=== PATIENT | female | born 1950 | race Caucasian/White ===

== ENCOUNTER 2016-08-28 11:32 | Emergency (ER) | payer OTHER ==
[~2016-08-28 11:32] MED LIST: AMLODIPINE BES2.5 MG PO; ASPIRIN EC LOW81 MG PO; CLONAZEPAM1 MG PO; FLAGYL250 MG PO; HYDROMORPHONE HC2 MG PO; IMITREX100 MG PO; LOPRESSOR100 MG PO; MONTELUKAST SOD10 MG PO; NORCO1 TAB PO; OXYCODONE HCL10 MG PO; PERCOCET1 TA1 PO; SULFACETAMIDE OP; VICODIN EQUIVAL1 TAB PO
--- NOTE | 2016-08-28 12:33 | DIAGNOSTIC IMAGING REPORT ---
PROCEDURE: XR KNEE 4 VIEWS - RIGHT INDICATION: TRAUMA/INJURY, initial encounter TECHNIQUE: Four views. COMPARISON: None. FINDINGS: Osseous structures and joint spaces are normal. No effusion. IMPRESSION: 1. Normal right knee.
--- NOTE | 2016-08-28 12:45 | ED NURSING NOTES ---
Clinical Report - Nurses [facility] [address] [place] [place] [address] 08/28/2016 11:32 [id number] TRI[facility] Triage time 11:39. Acuity: LEVEL 3. Chief Complaint: INJURY TO RIGHT KNEE. Alert. No acute distress. SEPSIS SCREEN: Sepsis Screen: negative. Negative (no infection suspected/documented). TIANA COMA SCORE: [place] Coma Scale: 15- eyes open spontaneously (4); best verbal response- oriented x 4 (5); best motor response- obeys commands (6). --11:51 Maddie Harvey R.N. 11:39 08/28/16. BP: 153/79. HR: 92. RR: 20. O2 saturation: 100% on room air. Temp: 97.9 F. Pain level now: 05/24. --11:51 Maddie Harvey R.N. 11:39 08/28/16. BP: 153/79. HR: 92. RR: 20. O2 saturation: 100% on room air. Temp: 97.9 F. Pain level now: 05/24. --11:52 Maddie Harvey R.N. Weight: 60.7 kg stated. Height/Length: 63 inches Per Patient. BMI: 23.7. --11:48 Maddie Harvey R.N. Medications AmLODIPine Besylate Oral 2.5 mg, 2x a day. Aspirin Oral (Tablet 81 mg) 1 tablet, q day. ClonazePAM Oral 1 mg, 4x a day. Imitrex Oral (Tablet 100 mg) 1 tablet, PRN. Lopressor Oral (Tablet 100 mg) 1-1/2 tablets, 2x a day. Percocet Oral 5/325 mg (at night). Vicodin Oral 7.5 mg, 4x a day (during the day). --11:45 Maddie Harvey R.N. SEROquel Oral recently . --11:46 Maddie Harvey R.N. Medication/allergy information source: the patient. --11:51 Maddie Harvey R.N. Allergies Demerol. --11:45 Maddie Harvey R.N. History Arrived by private vehicle. Historian: patient. Primary physician (KATHY). ( dropped off). This occurred (2 days ago). Occurred at home. Mechanism of injury: a single blow with an unknown blunt object (Dropped a box of alexandra ornaments and hit on the inside of the rt knee. Happened 2 days.). She has had trouble walking. The patient has been unable to walk. Treatment OPERATIONS EXAMINER: Ice and (heat, icy-hot). PAST MEDICAL HX: Tetanus status: up-to-date. SOCIAL HX: Light tobacco smoker (cigarette)- less than 1/2 a pack per day. No alcohol use or drug use. FALL RISK ASSESSMENT: Fall risk assessment completed. No fall risk identified. NUTRITIONAL RISK ASSESSMENT: The nutritional risk assessment revealed no deficiencies. FUNCTIONAL ASSESSMENT: Functional assessment: no impairments noted. LEARNING NEEDS ASSESSMENT: The learning needs assessment revealed no barriers. SKIN INTEGRITY ASSESSMENT: Skin integrity risk assessment completed. No skin integrity risk identified. --11:51 Maddie Harvey R.N. PROBLEMS: Nausea. Vomiting. Gallstone(s). Gastroenteritis. Abnormal Liver Function Test. Abdominal Pain. UTI - Urinary Tract Infection. Leukocytosis. Dehydration. Aneurysm, Cerebral. Anxiety Reaction. Depression. Bowel Obstruction. Headache. Crohn's Disease. Migraine Headache. Hypertension. --11:48 Maddie Harvey R.N. Aneurysm [Resolved]. --11:48 Maddie Harvey R.N. Vomiting [RuleOut]. --11:48 Maddie Harvey R.N. Knee Injury. --11:48 Maddie Harvey R.N. ADDITIONAL SURGERIES: Appendectomy. Bowel Surgery. Breast Biopsy. Cholecystectomy. Colostomy. Corotid artery doppler study. Hysterectomy. Oophorectomy. Salpingectomy. Tonsillectomy. --11:48 Maddie Harvey R.N. Interventions ID band on patient. To room. --11:51 Maddie Harvey R.N. NURSING PROGRESS NOTES 3 inch minesh bandage applied to right knee by tech; distal pulses intact, sensation intact and motor function within normal limits (x2). --12:53 Twan Puente. DISPOSITION / DISCHARGE Condition at departure: improved. No learning barriers present. Discharge instructions provided and reviewed with the patient. Reviewed medication(s) side effects, precautions, dosing and course information. Prescription(s) given to the patient. Patient verbalized understanding. Written instructions provided in Andorran. The patient was discharged home. She left the Emergency Department ambulatory and via private vehicle. Medication list reviewed and validated. --13:35 Maddie Harvey R.N. 13:05 08/28/16. BP: 148/71. HR: 88. RR: 20. O2 saturation: 97% on room air. Temp: deferred. 11:39 08/28/16. BP: 153/79. HR: 92. RR: 20. O2 saturation: 100% on room air. Temp: 97.9 F. Pain level now: 05/24. --13:35 Maddie Harvey R.N. Locked/Released at 08/28/2016 13:36 by Maddie Harvey R.N.
--- NOTE | 2016-08-28 12:45 | ED NURSING NOTES ---
Clinical Report - Nurses [facility] [address] [place] [address] 08/28/2016 11:32 [id number] TRIAGE Triage time 11:39. Acuity: LEVEL 3. Chief Complaint: INJURY TO RIGHT KNEE. Alert. No acute distress. SEPSIS SCREEN: Sepsis Screen: negative. Negative (no infection suspected/documented). TIANA COMA SCORE: [place] Coma Scale: 15- eyes open spontaneously (4); best verbal response- oriented x 4 (5); best motor response- obeys commands (6). --11:51 Maddie Harvey R.N. 11:39 08/28/16. BP: 153/79. HR: 92. RR: 20. O2 saturation: 100% on room air. Temp: 97.9 F. Pain level now: 05/24. --11:51 Maddie Harvey R.N. 11:39 08/28/16. BP: 153/79. HR: 92. RR: 20. O2 saturation: 100% on room air. Temp: 97.9 F. Pain level now: 05/24. --11:52 Maddie Harvey R.N. Weight: 60.7 kg stated. Height/Length: 63 inches Per Patient. BMI: 23.7. --11:48 Maddie Harvey R.N. Medications AmLODIPine Besylate Oral 2.5 mg, 2x a day. Aspirin Oral (Tablet 81 mg) 1 tablet, q day. ClonazePAM Oral 1 mg, 4x a day. Imitrex Oral (Tablet 100 mg) 1 tablet, PRN. Lopressor Oral (Tablet 100 mg) 1-1/2 tablets, 2x a day. Percocet Oral 5/325 mg (at night). Vicodin Oral 7.5 mg, 4x a day (during the day). --11:45 Maddie Harvey R.N. SEROquel Oral recently . --11:46 Maddie Harvey R.N. Medication/allergy information source: the patient. --11:51 Maddie Harvey R.N. Allergies Demerol. --11:45 Maddie Harvey R.N. History Arrived by private vehicle. Historian: patient. Primary physician (KATHY). ( dropped off). This occurred (2 days ago). Occurred at home. Mechanism of injury: a single blow with an unknown blunt object (Dropped a box of alexandra ornaments and hit on the inside of the rt knee. Happened 2 days.). She has had trouble walking. The patient has been unable to walk. Treatment EMERGENCY NURSE: Ice and (heat, icy-hot). PAST MEDICAL HX: Tetanus status: up-to-date. SOCIAL HX: Light tobacco smoker (cigarette)- less than 1/2 a pack per day. No alcohol use or drug use. FALL RISK ASSESSMENT: Fall risk assessment completed. No fall risk identified. NUTRITIONAL RISK ASSESSMENT: The nutritional risk assessment revealed no deficiencies. FUNCTIONAL ASSESSMENT: Functional assessment: no impairments noted. LEARNING NEEDS ASSESSMENT: The learning needs assessment revealed no barriers. SKIN INTEGRITY ASSESSMENT: Skin integrity risk assessment completed. No skin integrity risk identified. --11:51 Maddie Harvey R.N. PROBLEMS: Nausea. Vomiting. Gallstone(s). Gastroenteritis. Abnormal Liver Function Test. Abdominal Pain. UTI - Urinary Tract Infection. Leukocytosis. Dehydration. Aneurysm, Cerebral. Anxiety Reaction. Depression. Bowel Obstruction. Headache. Crohn's Disease. Migraine Headache. Hypertension. --11:48 Maddie Harvey R.N. Aneurysm [Resolved]. --11:48 Maddie Harvey R.N. Vomiting [RuleOut]. --11:48 Maddie Harvey R.N. Knee Injury. --11:48 Maddie Harvey R.N. ADDITIONAL SURGERIES: Appendectomy. Bowel Surgery. Breast Biopsy. Cholecystectomy. Colostomy. Corotid artery doppler study. Hysterectomy. Oophorectomy. Salpingectomy. Tonsillectomy. --11:48 Maddie Harvey R.N. Interventions ID band on patient. To room. --11:51 Maddie Harvey R.N. NURSING PROGRESS NOTES 3 inch minesh bandage applied to right knee by tech; distal pulses intact, sensation intact and motor function within normal limits (x2). --12:53 Twan Puente. DISPOSITION / DISCHARGE Condition at departure: improved. No learning barriers present. Discharge instructions provided and reviewed with the patient. Reviewed medication(s) side effects, precautions, dosing and course information. Prescription(s) given to the patient. Patient verbalized understanding. Written instructions provided in Sudanese. The patient was discharged home. She left the Emergency Department ambulatory and via private vehicle. Medication list reviewed and validated. --13:35 Maddie Harvey R.N. 13:05 08/28/16. BP: 148/71. HR: 88. RR: 20. O2 saturation: 97% on room air. Temp: deferred. 11:39 08/28/16. BP: 153/79. HR: 92. RR: 20. O2 saturation: 100% on room air. Temp: 97.9 F. Pain level now: 05/24. --13:35 Maddie Harvey R.N. Locked/Released at 08/28/2016 13:36 by Maddie Harvey R.N.
--- NOTE | 2016-08-28 12:45 | ED CLINICAL REPORT ---
Clinical Report - Physicians/Mid Levels [facility] [address] [place] [address] 08/28/2016 11:32 Patient: NATE GONZALEZ Time Seen: 12:02; initial patient contact, initial documentation, patient care assumed. Arrived- By private vehicle. Historian- patient. HISTORY OF PRESENT ILLNESS Chief Complaint: Injury to right knee. The injury happened about 2 days ago. Occurred at home. ( carrying box of ornaments and dropped it and hit knee). The patient sustained a light direct blow. Patient is experiencing severe pain. Patient denies injury to the head or neck. No other injury. REVIEW OF SYSTEMS The patient complains of pain on weight bearing. She cannot bear weight. No swelling, tingling, weakness, numbness or skin laceration. All systems otherwise negative, except as recorded above. PAST HISTORY See nurses notes. ( PROBLEMS: Nausea. Vomiting. Gallstone(s). Gastroenteritis. Abnormal Liver Function Test. Abdominal Pain. UTI - Urinary Tract Infection. Leukocytosis. Dehydration. Aneurysm, Cerebral. Anxiety Reaction. Depression. Bowel Obstruction. Headache. Crohn's Disease. Migraine Headache. Hypertension. --11:48 Maddie Harvey R.N. Aneurysm [Resolved]. --11:48 Maddie Harvey R.N. Vomiting [RuleOut]. --11:48 Maddie Harvey R.N. Knee Injury. --11:48 Maddie Harvey R.N. ADDITIONAL SURGERIES: Appendectomy. Bowel Surgery. Breast Biopsy. Cholecystectomy. Colostomy. Corotid artery doppler study. Hysterectomy. Oophorectomy. Salpingectomy. Tonsillectomy. --11:48 Maddie Harvey R.N.). SOCIAL HISTORY Light tobacco smoker. No alcohol use or drug use. No recent travel. Is a local resident. FAMILY HISTORY No significant family medical history. ADDITIONAL NOTES The nursing notes have been reviewed with agreement regarding the chief complaint, HPI, ROS, PMH and patient medications and allergies. PHYSICAL EXAM Vital Signs: 08/28/2016 11:39 BP: 153/79. HR: 92. RR: 20. O2 saturation: 100%. Temp: 97.9 F. Pain level now: 05/24. Have been reviewed as normal and appear to be correct. Appearance: Alert. Oriented X3. No acute distress. Head: Head atraumatic. Eyes: Pupils equal, round and reactive to light. Eyes normal inspection. Respiratory: No respiratory distress. Skin: Skin intact. Skin warm. Normal skin color. Normal skin turgor. Extremities: Right knee: moderate tenderness located in the patella and medial joint line. Limited ROM secondary to pain (diminished flexion and external and internal rotation). Neurovascular intact distally. No ligamentous laxity present. No joint effusion. No erythema, swelling, laceration, abrasion or ecchymosis. No puncture wound, foreign body or deformity. Lower extremity exam otherwise negative. Extremities otherwise negative. Gait: Abnormal gait. Gait not tested due to pain. Neuro, Vascular and Tendons: Vascular status intact. Sensation intact. Motor intact. Tendon function intact. Neuro: Oriented X 3. No motor deficit. No sensory deficit. Note: isolated injury to knee. LABS, X-RAYS, AND EKG X-Rays: Right knee. Rt Knee X-ray: (IMPRESSION: 1. Normal right knee. Electronically Final signed by:Nixon Guillen MD 08/28/2016 12:33:10 PM). The X-rays were interpreted by the radiologist and contemporaneously by me. PROGRESS AND PROCEDURES Course of Care: pt is well known to er staff, and has hit the max controlled substance policy 12:23 08/28/16. pt has [facility] for frequent er visits, see report for full details 1234. pt ambulating to sink. Patient counseled in person regarding the patient's stable condition and diagnosis. 12:34. Differential Diagnosis: I considered fracture, stress fracture, bone contusion, gout, sprain, meniscus tear, anterior cruciate ligament tear, ligament tear, soft tissue injury, soft tissue hematoma, myositis, fasciitis, tendonitis and bursitis as a possible cause of lower extremity pain in this patient. This is a partial list of diagnoses considered. Other possible considerations: substance abuse. Above considerations are based on history, physical exam and X-Ray data. Differential diagnosis was discussed with patient. Disposition: Discharged home in good and improved condition (12:45). Condition: good and stable. CLINICAL IMPRESSION Acute traumatic pain in the right lower extremity (knee). INSTRUCTIONS Wear elastic wrap (Samir wrap) as directed for one weeks until better. Warnings: GENERAL WARNINGS: Return or contact your physician immediately if your condition worsens or changes unexpectedly, if not improving as expected, or if other problems arise. Specifically return if problem worsens. Prescription Medications: Naproxen 500 mg tablets: take 1 orally every 12 hours as needed for pain. Dispense twenty (20). No refills. Follow-up: Follow up with your doctor in about one week as needed. Call for an appointment. Summary of care provided to patient. Understanding of the discharge instructions verbalized by patient. (Electronically signed by Lianet Bergman A.R.N.P. 08/28/2016 13:52)
--- NOTE | 2016-08-28 12:45 | ED ORDER SUMMARY ---
..... Patient: NATE GONZALEZ OrderSheet [facility] VisitID: [id number] [address] [place] [address] 65y, F Registration Date/Time: 08/28/2016 ORDER SHEET Weight: 60.7 kg (stated) Allergies: Demerol GENERAL ORDERS: Knee 4V Right Urgent (12:08 08/28/2016 HBivens A.R.N.P.) (Ack 12:[facility] (12:35 Theo) Samir Wrap (12:45 08/28/2016 HBivens A.R.N.P.) (12:52 LTapper) MEDICATION ORDERS: IV FLUIDS: ORDER SHEET NOTES: [Electronically signed by Maddie Harvey R.N. (13:36 08/28/2016)] [Electronically signed by Lianet BergmanR.N.PEdmundo (13:52 08/28/2016)] [Electronically locked/signed by Maddie Harvey R.N. (13:36 08/28/2016)]
--- NOTE | 2016-08-28 12:45 | ED ORDER SUMMARY ---
..... Patient: NATE GONZALEZ OrderSheet [facility] VisitID: [id number] [address] [place] [address] 65y, F Registration Date/Time: 08/28/2016 ORDER SHEET Weight: 60.7 kg (stated) Allergies: Demerol GENERAL ORDERS: Knee 4V Right Urgent (12:08 08/28/2016 HBivens A.R.N.P.) (Ack 12:24 [facility] (12:35 Theo) Samir Wrap (12:45 08/28/2016 HBivens A.R.N.P.) (12:52 LTapper) MEDICATION ORDERS: IV FLUIDS: ORDER SHEET NOTES: [Electronically signed by Maddie Harvey R.N. (13:36 08/28/2016)] [Electronically signed by Lianet BergmanR.N.PEdmundo (13:52 08/28/2016)] [Electronically locked/signed by Maddie Harvey R.N. (13:36 08/28/2016)]
--- NOTE | 2016-08-28 13:53 | ED MED RECONCILIATION SUMMARY ---
Patient: NATE GONZALEZ Medication Reconciliation Report [facility] VisitID: [id number] [place] [address] 65y, F Registration Date/Time: 08/28/2016 Weight: 60.7 kg Height/Length: 63 in. BMI: 23.7 ALLERGIES: Demerol The patient's Home Medications are listed below: THE FOLLOWING MEDICATIONS NEED TO BE RECONCILED: AmLODIPine Besylate Oral 2.5 mg, 2x a day Aspirin Oral (81 mg) 1 tablet, q day ClonazePAM Oral 1 mg, 4x a day Imitrex Oral (100 mg) 1 tablet, PRN Lopressor Oral (100 mg) 1-1/2 tablets, 2x a day Percocet Oral 5/325 mg, at night SEROquel Oral recently Vicodin Oral 7.5 mg, 4x a day, during the day The source(s) of the original Home Medication information: patient The following Medications were given to the patient in the Emergency Department: None. The following Medications were prescribed to the patient: Naproxen 500 mg tablets: take 1 orally every 12 hours as needed for pain. Dispense twenty (20). No refills. -- Lianet Bergman A.R.N.P.
--- NOTE | 2016-08-28 13:53 | ED MED RECONCILIATION SUMMARY ---
Patient: NATE GONZALEZ Medication Reconciliation Report [facility] VisitID: [id number] [place] [address] 65y, F Registration Date/Time: 08/28/2016 Weight: 60.7 kg Height/Length: 63 in. BMI: 23.7 ALLERGIES: Demerol The patient's Home Medications are listed below: THE FOLLOWING MEDICATIONS NEED TO BE RECONCILED: AmLODIPine Besylate Oral 2.5 mg, 2x a day Aspirin Oral (81 mg) 1 tablet, q day ClonazePAM Oral 1 mg, 4x a day Imitrex Oral (100 mg) 1 tablet, PRN Lopressor Oral (100 mg) 1-1/2 tablets, 2x a day Percocet Oral 5/325 mg, at night SEROquel Oral recently Vicodin Oral 7.5 mg, 4x a day, during the day The source(s) of the original Home Medication information: patient The following Medications were given to the patient in the Emergency Department: None. The following Medications were prescribed to the patient: Naproxen 500 mg tablets: take 1 orally every 12 hours as needed for pain. Dispense twenty (20). No refills. -- Lianet Bergman A.R.N.P.
--- NOTE | 2016-08-28 13:53 | ED MAR SUMMARY ---
..... Medication Administration Record [facility] [address], [place] [id number] Patient: NATE GONZALEZ Visit ID: [id number] 65y, F Weight: 60.7 kg Height/Length: 63 in BMI: 23.7 ALLERGIES: Demerol
--- NOTE | 2016-08-28 13:53 | ED DISCHARGE INSTRUCTIONS ---
Patient: NATE GONZALEZ General Instructions [facility] VisitID: [id number] [place] [address] 65y, F Registration Date/Time: 08/28/2016 Acute traumatic pain in the right lower extremity (knee). INSTRUCTIONS Wear elastic wrap (Samir wrap) as directed for one weeks until better. Warnings: GENERAL WARNINGS: Return or contact your physician immediately if your condition worsens or changes unexpectedly, if not improving as expected, or if other problems arise. Specifically return if problem worsens. Prescription Medications: Naproxen 500 mg tablets: take 1 orally every 12 hours as needed for pain. Dispense twenty (20). No refills. Follow-up: Follow up with your doctor in about one week as needed. Call for an appointment. Summary of care provided to patient. Understanding of the discharge instructions verbalized by patient. ADDITIONAL INFORMATION Pain, Uncertain Cause [Acute] Pain is the bodys way of calling attention to a problem. Pain can be caused by many conditions - some minor, some serious. In your case, we were not able to find the exact cause for your pain. However, at this time there is no sign of any serious or life-threatening illness causing your pain. Sometimes more tests will be needed to determine the cause. Other times, just allowing more time to pass will either make it clear what the problem is, or the pain will go away by itself. Home Care: You may use acetaminophen (Tylenol) or ibuprofen (Motrin, Advil) to control pain, unless another medicine was prescribed. [NOTE: If you have chronic liver or kidney disease or ever had a stomach ulcer or GI bleeding, talk with your doctor before using these medicines.] Follow Up with your doctor or as advised by our staff. Get Prompt Medical Attention if any of the following occur: Changes in the pattern of your pain Appearance of new symptoms Fever of 100.4F (38C) or higher, or as directed by your healthcare provider Myositis Myositis is a class of rare auto-immune diseases that cause chronic inflammation. These include Polymyositis, which affects muscles throughout the body, and Dermatomyositis, which affects both skin and muscle. Other forms can affect the joints, heart, lungs and intestines. This condition can be hard to diagnose, because it resembles other diseases. Immune cells in the body usually attack and destroy viruses and harmful bacteria. In myositis, for unknown reasons, the immune system begins attacking the skin and/or muscles. Sometimes other parts of the body are also affected. Myositis may be triggered by exposure to certain chemicals, drugs, or viruses. It is important that you tell your doctor about any [id number] drug use, infection, or exposure to other substances that occurred near the time when your symptoms started. Stopping the exposure or treating the infection may stop myositis. The symptoms of myositis can be very different depending on the type you have. Common symptoms are muscle weakness (especially muscles of the hips and shoulders), loss of energy (fatigue), rash or changes in the skin, and arthritis (swollen, painful joints). You may have trouble climbing stairs, getting out of chairs, lifting heavy things, or raising your arms overhead. Sometimes the muscles ache and become tender. The swallowing muscles may also be affected. The disease usually starts slowly and may take months or years to develop. You may notice that you have periods when your symptoms get worse (active disease) followed by periods where symptoms get better or go away completely (remission). Treatment options include medication, rest, physical therapy and exercise. Your doctor may prescribe oral steroids or drugs that suppress the immune system in order to slow down the progress of the disease. Home Care: If you were prescribed a medication, take it as directed. You may use acetaminophen (Tylenol) or ibuprofen (Motrin, Advil) to control pain, unless another medicine was prescribed. [NOTE: If you have chronic liver or kidney disease or ever had a stomach ulcer or GI bleeding, talk with your doctor before using these medicines.] Dont take ibuprofen or other NSAIDs (non-steroidal anti-inflammatory drugs) if you were prescribed prednisone. Remain physically active. Light exercise and physical activity are helpful to keep your muscles in the best shape possible. Talk to your doctor about an exercise plan that is right for you. If you are having muscle aches, rest as needed. Follow Up with your doctor or as advised by our staff. For more information contact: Myositis Association, www.myositis.org [employer] [phone], www.arthritis.org Return Promptly or contact your doctor if any of the following occur: Change in bowel or bladder habits Blood in the stool (black or red color) Unexpected weight loss A lump in the breast or elsewhere Difficulty swallowing Change in the appearance of a wart or mole Persistent cough, hoarseness or coughing up blood Night sweats or unexplained fevers Shortness of breath Arthralgia Arthralgia is the term for pain in or around the joint. It is not a disease but a symptom. This may involve one or more joints. Sometimes arthralgias move from joint to joint. There are many causes for joint pain. These include: Injury Osteoarthritis (from wearing out of the joint surface) Rheumatoid arthritis (an autoimmune disease) Gout (inflammation of the joint due to crystals in the joint fluid) Infection inside the joint Bursitis (inflammation of the fluid-filled sacs around the joint) Lupus and other collagen-vascular disease Home Care: Rest the involved joint(s) until your symptoms improve. You may use acetaminophen (Tylenol) or ibuprofen (Motrin, Advil) to control pain, unless another pain medicine was prescribed. [NOTE: If you have chronic liver or kidney disease or ever had a stomach ulcer or GI bleeding, talk with your doctor before using these medicines.] Follow Up with your doctor or as advised by our staff. [NOTE: If you had an X-ray it will be reviewed by a specialist. You will be notified of any new findings that may affect your care.] Return Promptly or contact your doctor if any of the following occurs: Pain increases Pain moves to other joints New rash appears Fever of 100.4F (38C) or higher, or as directed by your healthcare provider Samir Wrap An "Samir Bandage" refers to any elastic bandage wrap (2-6" wide). This is used to apply support and compression to an arm or leg. It will help prevent or reduce swelling also. When applying the bandage, it should not be stretched too tightly. A tight Samir Wrap will reduce circulation and cause tingling or numbness in the hand or foot. It may increase the pain under the bandage. If you get these symptoms, remove the wrap and rest the limb. Symptoms should go away within 1-2 hours. Once symptoms go away, reapply the bandage with less stretch. If symptoms do not go away after 1-2 hours with the bandage off, call your doctor or return to this facility promptly. Naproxen Sodium Oral tablet What is this medicine? NAPROXEN (na PROX en) is a non-steroidal anti-inflammatory drug (NSAID). It is used to reduce swelling and to treat pain. This medicine may be used for dental pain, headache, or painful monthly periods. It is also used for painful joint and muscular problems such as arthritis, tendinitis, bursitis, and gout. How should I use this medicine? Take this medicine by mouth with a glass of water. Follow the directions on the prescription label. Take it with food if your stomach gets upset. Try to not lie down for at least 10 minutes after you take it. Take your medicine at regular intervals. Do not take your medicine more often than directed. Long-term, continuous use may increase the risk of heart attack or stroke. A special MedGuide will be given to you by the pharmacist with each prescription and refill. Be sure to read this information carefully each time. Talk to your stretcher operator regarding the use of this medicine in children. Special care may be needed. What side effects may I notice from receiving this medicine? Side effects that you should report to your doctor or health health care attorney as soon as possible: black or bloody stools, blood in the urine or vomit blurred vision chest pain difficulty breathing or wheezing nausea or vomiting severe stomach pain skin rash, skin redness, blistering or peeling skin, hives, or itching slurred speech or weakness on one side of the body swelling of eyelids, throat, lips unexplained weight gain or swelling unusually weak or tired yellowing of eyes or skin Side effects that usually do not require medical attention (report to your doctor or health health care attorney if they continue or are bothersome): constipation headache heartburn What may interact with this medicine? alcohol aspirin cidofovir diuretics lithium methotrexate other drugs for inflammation like ketorolac or prednisone pemetrexed probenecid warfarin What if I miss a dose? If you miss a dose, take it as soon as you can. If it is almost time for your next dose, take only that dose. Do not take double or extra doses. Where should I keep my medicine? Keep out of the reach of children. Store at room temperature between 15 and 30 degrees C (59 and 86 degrees F). Keep container tightly closed. Throw away any unused medicine after the expiration date. What should I tell my health care provider before I take this medicine? They need to know if you have any of these conditions: asthma cigarette smoker drink more than 3 alcohol containing drinks a day heart disease or circulation problems such as heart failure or leg edema (fluid retention) high blood pressure kidney disease liver disease stomach bleeding or ulcers an unusual or allergic reaction to naproxen, aspirin, other NSAIDs, other medicines, foods, dyes, or preservatives or trying to get breast-feeding What should I watch for while using this medicine? Tell your doctor or health health care attorney if your pain does not get better. Talk to your doctor before taking another medicine for pain. Do not treat yourself. This medicine does not prevent heart attack or stroke. In fact, this medicine may increase the chance of a heart attack or stroke. The chance may increase with longer use of this medicine and in people who have heart disease. If you take aspirin to prevent heart attack or stroke, talk with your doctor or health health care attorney. Do not take other medicines that contain aspirin, ibuprofen, or naproxen with this medicine. Side effects such as stomach upset, nausea, or ulcers may be more likely to occur. Many medicines available without a prescription should not be taken with this medicine. This medicine can cause ulcers and bleeding in the stomach and intestines at any time during treatment. Do not smoke cigarettes or drink alcohol. These increase irritation to your stomach and can make it more susceptible to damage from this medicine. Ulcers and bleeding can happen without warning symptoms and can cause . You may get drowsy or dizzy. Do not drive, use machinery, or do anything that needs mental alertness until you know how this medicine affects you. Do not stand or sit up quickly, especially if you are an older patient. This reduces the risk of dizzy or fainting spells. This medicine can cause you to bleed more easily. Try to avoid damage to your teeth and gums when you brush or floss your teeth. You have been given the following additional information: Pain, Uncertain Cause (Acute) Myositis Arthralgia Samir Wrap Naproxen Sodium Oral tablet (Electronically signed by Lianet Bergman A.R.N.P. 08/28/2016 13:52)
--- NOTE | 2016-08-28 13:53 | ED MAR SUMMARY ---
..... Medication Administration Record [facility] [address] [place], [place] [id number] Patient: NATE GONZALEZ Visit ID: [id number] 65y, F Weight: 60.7 kg Height/Length: 63 in BMI: 23.7 ALLERGIES: Demerol
== END 2016-08-28 13:05 | disposition home or self-care (01) ==
LOC: ED SRH 11:32
DX: G89.11 Acute pain due to trauma (principal); M25.561 Pain in right knee; W22.8XXA Striking against or struck by other objects, initial encounter; Y93.89 Activity, other specified; Y92.009 Unspecified place in unspecified non-institutional (private) residence as the place of occurrence of the external cause; I10 Essential (primary) hypertension; F17.210 Nicotine dependence, cigarettes, uncomplicated; Z79.82 Long term (current) use of aspirin; Z88.5 Allergy status to narcotic agent

== ENCOUNTER 2016-09-10 09:08 | Outpatient (CLI) | payer OTHER ==
--- NOTE | 2016-09-10 09:45 | DIAGNOSTIC IMAGING REPORT ---
PROCEDURE: XR KNEE 4 VIEWS - RIGHT INDICATION: SPRAIN OF UNSPECIFIED SITE OF R KNEE,SUBSEQUENT ENCOUNTER, follow-up TECHNIQUE: Four views. COMPARISON: Right knee x-ray 08/28/2016 FINDINGS: Osseous structures, soft tissues and joint spaces are normal. No significant change. IMPRESSION: 1. Normal right knee.
== END 2016-09-10 23:00 ==
LOC: XR SRH 09:08
DX: S83.91XD Sprain of unspecified site of right knee, subsequent encounter (principal)

== ENCOUNTER 2016-09-21 21:11 | Inpatient (IN) | payer OTHER ==
[~2016-09-21] VITALS: Ht 160 cm; Wt 57.5 kg
--- NOTE | 2016-09-21 22:10 | DIAGNOSTIC IMAGING REPORT ---
PROCEDURE: XR ABDOMEN 1 VIEW INDICATION: ABDOMINAL PAIN, history of colectomy. Initial encounter TECHNIQUE: Upright KUB COMPARISON: KUB 05/22/2016 FINDINGS: Multiple surgical clips in the abdomen and pelvis and pelvic suture line. Multiple moderately dilated loops of bowel centrally with progression since the prior study. No masses or unusual calcifications. Osseous structures are unremarkable. IMPRESSION: 1. Colectomy 2. Dilated loops of small bowel suggestive of small bowel obstruction. Ileus and gastroenteritis are additional possibilities
--- NOTE | 2016-09-21 23:55 | ED NURSING NOTES ---
Clinical Report - Nurses [facility] [address] [place] [address] 09/21/2016 21:11 Patient: NATE GONZALEZ TRIAGE Triage time 2115. Acuity: LEVEL 3. Chief Complaint: ABDOMINAL PAIN, NAUSEA and VOMITING. Alert. No acute distress. --21:22 Dorinda Valencia 21:18 09/21/16. BP: 147/100. HR: 112. RR: 18. O2 saturation: 94%. Temp: 97.9 F. Pain level now 05/24. --21:22 Dorinda Valencia. Weight: 60.7 kg. Height/Length: 63 inches. BMI: 23.7. --21:17 Dorinda Valencia. Medications AmLODIPine Besylate Oral 2.5 mg, 2x a day. Aspirin Oral (Tablet 81 mg) 1 tablet, q day. ClonazePAM Oral 1 mg, 4x a day. Imitrex Oral (Tablet 100 mg) 1 tablet, PRN. Lopressor Oral (Tablet 100 mg) 1-1/2 tablets, 2x a day. Percocet Oral 5/325 mg (at night). Vicodin Oral 7.5 mg, 4x a day (during the day). --21:20 Dorinda Valencia. Allergies Demerol. --21:20 Dorinda Valencia. History Arrived by EMS. Historian: EMS and patient. This started today. ( Sts "I am always with a blockage and my pain medicine is not helping and I can't stop vomiting"). She has had nausea, vomiting and abdominal pain. Treatment PROFESSOR OF NURSING: None. SOCIAL HX: Smoker- current status unknown. Patient refuses to answer tobacco use questions. --21:22 Dorinda Valencia. PROBLEMS: Acute Pain. Knee Injury. Nausea. Vomiting. Gallstone(s). Gastroenteritis. Abnormal Liver Function Test. Abdominal Pain. UTI - Urinary Tract Infection. Leukocytosis. Dehydration. Aneurysm, Cerebral. Anxiety Reaction. Depression. Bowel Obstruction. Headache. Crohn's Disease. Migraine Headache. Hypertension. --21:20 Dorinda Valencia. ADDITIONAL SURGERIES: Appendectomy. Bowel Surgery. Breast Biopsy. Cholecystectomy. Colostomy. Corotid artery doppler study. EEG. Hysterectomy. Oophorectomy. Previous Abdominal Surgery. Salpingectomy. Tonsillectomy. --21:20 Dorinda Valencia. Interventions ID band on patient. To treatment room. --21:22 Dorinda Valencia. PHYSICAL ASSESSMENT To room via stretcher. Patient gowned. GENERAL / NEURO / PSYCH: Alert. Oriented X 4. Appears in no acute distress. HEENT: Mucous membranes are pink. RESPIRATORY: Respirations not labored. Breath sounds within normal limits. CVS: Normal sinus rhythm noted. Capillary refill less than 2 seconds. GI / : The patient has had nausea. Emesis noted. Abdominal distention. Abdominal tenderness. Abnormal bowel sounds present. SKIN: Skin is warm and dry. --21:22 Dorinda Valencia. NURSING PROGRESS NOTES The plan of care for this patient has been created. Patient gowned. Head of bed elevated. Reassurance given. Call light placed in reach. Side rails up x 2. Bed placed in lowest position. Brakes of bed on. Patient ready for evaluation- chart flagged. --21:23 Dorinda Valencia 21:38 09/21/2016 Site #1 started via IV in the right antecubital space with an 20g angiocath, with aseptic technique and good blood return; one attempt. Blood drawn: rainbow set. Labeled in the presence of the patient. Saline lock flushed with 10 mL saline. --21:38 Dorinda Valencia 21:38 09/21/2016 Zofran (Ondansetron HCl) IVP 4 mg given over 1 minute(s) via site #1. Allergies verified and confirmed 5 rights. IV patency established. IV site checked: no pain, redness, or swelling. IV flushed thoroughly pre- and post-medication administration. IVP given by RN. --21:38 Dorinda Valencia 21:39 09/21/2016 Started bag #1 1000 mL IV Fluids IV NS (Saline); bolus of 1000 mL wide open via site #1 --21:39 Dorinda Valencia 21:52 09/21/2016 Dilaudid (HYDROmorphone HCl PF) IVP 0.5 mg given over 1 minute(s) via site #1. Allergies verified, confirmed 5 rights and sedative warning given to the patient. IV patency established. IV site checked: no pain, redness, or swelling. IV flushed thoroughly pre- and post-medication administration. IVP given by RN. --21:52 Dorinda Valencia 23:23 09/21/2016 Dilaudid (HYDROmorphone HCl PF) IVP 1 mg given over 1 minute(s) via site #1. Allergies verified, confirmed 5 rights and sedative warning given to the patient. IV patency established. IV site checked: no pain, redness, or swelling. IV flushed thoroughly pre- and post-medication administration. IVP given by RN. --23:23 Dorinda Valencia 16 fr NG tube inserted in right nostril with minimal difficulty. Placement confirmed by auscultation and return of gastric contents. Return: green fluid. Tube secured. Attached to intermittent suction. Patient tolerated procedure well. --23:24 Dorinda Valencia ( Pt up to bathroom independently). --00:52 Dorinda Valencia Reassessment after medication administered. She is resting quietly and has had no adverse reaction. --01: Dorinda Valencia 01:09/22/16. BP: 128/75. HR: 87. RR: 16. O2 saturation: 93%. Pain level now 5/10. --01:06 Dorinda Valencia 23:00 09/21/16. BP: 145/96. HR: 80. RR: 16. O2 saturation: 93%. Pain level now: 5/10. --01:07 Dorinda Valencia. DISPOSITION / DISCHARGE Condition at departure: improved and stable. Report was given to a nurse via a phone call. Report included patient's care, treatment, medications, reviewed medication reconcilliation, and condition (including any recent changes or anticipated changes). All questions were answered. Report was acknowledged and care was transferred. Patient's personal items; items were placed in belongings bag and transported with the patient. --:13 Dorinda Valencia :09/22/2016 IV Fluids IV NS Discontinued: bag #1 infused upon admission. Total amount infused: 1000 mL. --01:13 Dorinda Valencia Departure time: :26. --01:26 Christian Cespedes R.N. Locked/Released at 09/22/2016 7:28 by Christian Cespedes R.N.
--- NOTE | 2016-09-21 23:55 | ED ORDER SUMMARY ---
..... Patient: NATE GONZALEZ OrderSheet [facility] VisitID: [id number] [place] [address] 65y, F Registration Date/Time: 09/21/2016 ORDER SHEET Weight: 60.7 kg Allergies: Demerol GENERAL ORDERS: CBC w Diff Urgent (21:25 09/21/2016 Elo VILLARREAL) (Ack 21:27 [facility] Immigration Attorney) (21:39 EBonham) CMP Urgent (21:09/21/2016 Elo VILLARREAL) (Ack 21:27 Zachery [facility] Immigration Attorney) (21:39 EBonham) UA-Culture if indicated Urgent (:09/21/2016 Elo VILLARREAL) (Ack 21:27 [facility] ER Immigration Attorney) (23:22 EBonham) Amylase Urgent (21:09/21/2016 Elo VILLARREAL) (Ack 21:27 [facility] ER Immigration Attorney) (21:39 EBonham) Lipase Urgent (21:09/21/2016 Elo VILLARREAL) (Ack 21:27 [facility] Immigration Attorney) (21:39 EBonham) Abdomen 1V Urgent (21:46 09/21/2016 Elo VILLARREAL) (Ack 21:49 CH[facility] Immigration Attorney) (22:03 MCampbell) NG Tube (22:58 09/21/2016 Elo VILLARREAL) (23:22 EBonham) MEDICATION ORDERS: IV FLUIDS: IV NS : initial bolus 1000 mL (1000 mL/hr), then 150 mL/hr for 4h (NOW); Urgent (21:25 09/21/2016 Elo VILLARREAL) (21:39 EBontripp) Zofran IV 4 mg (NOW) (21:25 09/21/2016 Elo VILLARREAL) (21:38 EBonham) Dilaudid IV 0.5 mg (HIGH ALERT MEDICATION, NOW) (21:47 09/21/2016 Elo VILLARREAL) (21:52 EBonham) Dilaudid IV 1 mg (HIGH ALERT MEDICATION, NOW) (22:58 09/21/2016 Elo VILLARREAL) (23:23 EBontripp) ORDER SHEET NOTES: [Electronically signed by Jeff Sadler MD (02:02 09/22/2016)] [Electronically signed by Christian Cespedes R.N. (09/22/2016)] [Electronically locked/signed by Christian Cespedes R.N. (09/22/2016)]
--- NOTE | 2016-09-21 23:55 | ED ORDER SUMMARY ---
..... Patient: NATE GONZALEZ OrderSheet [facility] VisitID: [id number] [place] [address] 65y, F Registration Date/Time: 09/21/2016 ORDER SHEET Weight: 60.7 kg Allergies: Demerol GENERAL ORDERS: CBC w Diff Urgent (21:25 09/21/2016 Elo VILLARREAL) (Ack 21:27 [facility] Chemical Laboratory Chief) (21:39 EBonham) CMP Urgent (21:09/21/2016 Elo VILLARREAL) (Ack 21:27 Zachrey [facility] Chemical Laboratory Chief) (21:39 EBonham) UA-Culture if indicated Urgent (:09/21/2016 Elo VILLARREAL) (Ack 21:27 Zachery [facility] Chemical Laboratory Chief) (23:22 EBonham) Amylase Urgent (21:09/21/2016 Elo VILLARREAL) (Ack 21:27 Z[facility] Chemical Laboratory Chief) (21:39 EBonham) Lipase Urgent (21:09/21/2016 Elo VILLARREAL) (Ack 21:27 [facility] Chemical Laboratory Chief) (21:39 EBonham) Abdomen 1V Urgent (21:46 09/21/2016 Elo VILLARREAL) (Ack 21:49 CH[facility] Chemical Laboratory Chief) (22:03 MCampbell) NG Tube (22:58 09/21/2016 Elo VILLARREAL) (23:22 EBonham) MEDICATION ORDERS: IV FLUIDS: IV NS : initial bolus 1000 mL (1000 mL/hr), then 150 mL/hr for 4h (NOW); Urgent (21:25 09/21/2016 Elo VILLARREAL) (21:39 EBontripp) Zofran IV 4 mg (NOW) (21:25 09/21/2016 Elo VILLARREAL) (21:38 EBonham) Dilaudid IV 0.5 mg (HIGH ALERT MEDICATION, NOW) (21:47 09/21/2016 Elo VILLARREAL) (21:52 EBonham) Dilaudid IV 1 mg (HIGH ALERT MEDICATION, NOW) (22:58 09/21/2016 Elo VILLARREAL) (23:23 EBontripp) ORDER SHEET NOTES: [Electronically signed by Jeff Sadler MD (02:02 09/22/2016)] [Electronically signed by Christian Cespedes R.N. (09/22/2016)] [Electronically locked/signed by Christian Cespedes R.N. (09/22/2016)]
--- NOTE | 2016-09-21 23:55 | ED CLINICAL REPORT ---
Clinical Report - Physicians/Mid Levels [facility] [address] [place] [address] 09/21/2016 21:11 [id number] Time Seen: 21:24. Arrived- By private vehicle. Historian- patient. HISTORY OF PRESENT ILLNESS Chief Complaint: VOMITING. This started at about 7:30 PM and is still present. It was abrupt in onset and has been intermittent and waxing/waning. No recent travel. She has had nausea and abdominal pain. The pain is described as located in the left side of the abdomen. She has had vomiting. The vomiting has occurred numerous times. No blood-tinged emesis, coffee-grounds emesis or frankly bloody emesis. She has had mild diarrhea. This has occurred several times. No black stools, bloody stools, constipation, history of possible bad food exposure or known contact with a sick individual. Has not recently been camping or on antibiotics. The illness is described as severe. Similar symptoms previously: Many times. REVIEW OF SYSTEMS No chills, fever, sweats, calf pain or chest pain. No cough, difficulty breathing, pedal edema, palpitations or black stools. No bloody stools, constipation or urinary problems. She has had abdominal pain, diarrhea, nausea and vomiting. All systems otherwise negative, except as recorded above. PAST HISTORY PCP - Armand (he is currently out of town). Problems: Acute Pain. Knee Injury. Nausea. Vomiting. Gallstone(s). Gastroenteritis. Abnormal Liver Function Test. Abdominal Pain. UTI - Urinary Tract Infection. Leukocytosis. Dehydration. Aneurysm, Cerebral. Anxiety Reaction. Depression. Bowel Obstruction. Headache. Crohn's Disease. Migraine Headache. Hypertension. Additional Surgeries: Appendectomy. Bowel Surgery. Breast Biopsy. Cholecystectomy. Colostomy. Colostomy reversal. Corotid artery doppler study. EEG. Hysterectomy. Oophorectomy. Previous Abdominal Surgery. Salpingectomy. Tonsillectomy. Medications: AmLODIPine Besylate Oral 2.5 mg, 2x a day. Aspirin Oral (Tablet 81 mg) 1 tablet, q day. ClonazePAM Oral 1 mg, 4x a day. Imitrex Oral (Tablet 100 mg) 1 tablet, PRN. Lopressor Oral (Tablet 100 mg) 1-1/2 tablets, 2x a day. Percocet Oral 5/325 mg (at night). Vicodin Oral 7.5 mg, 4x a day (during the day). Allergies: Demerol. SOCIAL HISTORY Former smoker, end date 2013. No alcohol use or drug use. Is a local resident. Resides in a house. She lives with a family member. FAMILY HISTORY Diabetes in first-degree relative (a child); heart disease in first-degree relative (sibling); cancer in first-degree relative (sibling). mother due to a cerebral aneurysm. ADDITIONAL NOTES The nursing notes have been reviewed. PHYSICAL EXAM Vital Signs: 09/21/2016 21:18 BP: 147/100. HR: 112. RR: 18. O2 saturation: 94%. Temp: 97.9 F. Have been reviewed. Appearance: Alert. Eyes: Pupils equal, round and reactive to light. ENT: Pharynx normal. Neck: Normal inspection. Neck supple. No meningeal signs. CVS: Normal heart rate and rhythm. Heart sounds normal. Respiratory: No respiratory distress. Breath sounds normal. Abdomen: Soft. Severe tenderness diffusely. Abnormal bowel sounds: hyperactive. No organomegaly. No mass. Scar present. Back: Normal inspection. No CVA tenderness. Skin: Skin warm and dry. Normal skin color. Normal skin turgor. Extremities: Extremities exhibit normal ROM. No calf tenderness. No lower extremity edema. LABS, X-RAYS, AND EKG KUB: (IMPRESSION: 1. Colectomy 2. Dilated loops of small bowel suggestive of small bowel obstruction. Ileus and gastroenteritis are additional possibilities). The X-rays were interpreted by the radiologist and contemporaneously by me. Laboratory Tests: UA-Culture if indicated: (ÁNGEL: 09/21/2016 22:55) ( MsgRcvd 09/21/2016 23:47) Final results Test Result Flag Units (Reference) URINE COLOR YELLOW URINE APPEARANCE CLEAR URINE GLUCOSE NEGATIVE (NEGATIVE) URINE BILIRUBIN NEGATIVE (NEGATIVE) URINE KETONE 3+ (NEGATIVE) URINE SPECIFIC GRAVITY 1.020 (1.010-1.030) URINE PH 6.0 (5.0-8.0) URINE PROTEIN NEGATIVE (NEGATIVE) URINE UROBILINOGEN 0.2 EU/dL (0.2-1.0) URINE NITRITE NEGATIVE (NEGATIVE) URINE BLOOD TRACE-INTACT (NEGATIVE) URINE LEUK ESTERASE POSITIVE (NEGATIVE) URINE RBC 1-3 rbc/hpf (0-1) URINE WBC 1-3 wbc/hpf (0-1) URINE EPITHELIAL CELLS 1-3 EPI/hpf (0-5) URINE BACTERIA FEW (1+) (NONE SEEN) URINE COMMENT CULTURE INDICATED URINE CULTURES ARE SET-UP BASED ON THE FOLLOWING CRITERIA:POSITIVE NITRITEPOSITIVE LEUKOCYTE ESTERASEGREATER THAN 10 WHITE BLOOD CELLSMODERATE (2+) OR GREATER BACTERIA CBC w Diff: (ÁNGEL: 09/21/2016 21:30) ( MsgRcvd 09/21/2016 21:57) Final results Test Result Flag Units (Reference) WHITE BLOOD COUNT 9.3 K/uL (4.5-11.5) RED BLOOD COUNT 4.81 M/uL (4.00-5.20) HEMOGLOBIN 14.6 gm/dL (12.0-16.0) HEMATOCRIT 44.1 % (36.0-46.0) MEAN CELL VOLUME 92 fL (80-100) MEAN CORPUSCULAR HGB 30 pg (26-34) MEAN CORPUSCULAR HGB CONC 33 g/dL (31-37) RED CELL DISTRIBUTION WIDTH 14.1 % (11.6-14.8) PLATELET COUNT 354 K/uL (150-400) NEUTROPHIL % 74.9 % (50-75) LYMPH % 17.2 L % (25-40) MONO % 7.4 % (3-14) EOSINOPHIL % 0.3 % (0-4) BASOPHIL % 0.2 % (0-2) CMP: (ÁNGEL: 09/21/2016 21:30) ( MsgRcvd 09/21/2016 22:19) Final results Test Result Flag Units (Reference) GLUCOSE 134 H mg/dL (70-110) BUN 22 H mg/dL (7-18) CREATININE 0.7 mg/dL (0.6-1.3) Estimated GFR >60 mL/min Estimated GFR- >60 mL/min Note: Persistent reduction over 3 months in eGFR<60 mL/min/1.73 m2 defines CKD. Patients with eGFR values>=60 mL/min/1.73 m2 may also have CKD if evidence ofpersistent proteinuria. Additional information may be foundat www.[email or web address].org. SODIUM 142 mmol/L (136-145) POTASSIUM 3.5 mmol/L (3.5-5.1) CHLORIDE 104 mmol/L (98-107) CARBON DIOXIDE 24 mmol/L (21-32) CALCIUM 9.2 mg/dL (8.5-10.1) TOTAL PROTEIN 8.3 H g/dL (6.4-8.2) ALBUMIN 3.1 L g/dL (3.3-5.0) BILIRUBIN, TOTAL 0.4 mg/dL (0.0-1.0) ALKALINE PHOSPHATASE 131 H U/L (46-116) AST (SGOT) 18 U/L (15-37) ALT (SGPT) 19 U/L (12-78) LIPASE 65 L U/L (73-393) AMYLASE 19 L U/L (25-115) . PROGRESS AND PROCEDURES Discussed case with hospitalist, (Tho). Reviewed test results and need for additional work-up. Agreed upon treatment plan, need for patient follow-up and decision to admit. Health care provider will see patient in hospital. Patient/family counseled. Old medical records reviewed. Disposition orders written (in [facility]). Disposition: Admitted. CLINICAL IMPRESSION Bowel obstruction. asymptomatic bacteriuria. (Electronically signed by Jeff Sadler MD 09/22/2016 2:02)
[2016-09-22] MEDS ORDERED: AMLODIPINE BES2.5 MG PO (01:49)
[2016-09-22] MEDS ORDERED: CLONAZEPAM1 MG PO (01:51)
[2016-09-22 01:54] VITALS: BP 123/78
[2016-09-22] MEDS ORDERED: SERTRALINE HCL25 MG PO (02:09)
--- NOTE | 2016-09-22 02:17 | Progress Note ---
Subjective General Admission History and Physical Examination Patient Name: Connie Monteiro Admission Date: September 22, 2016 Primary Care Provider: Bobby Acuna M.D. Attending Physician: Saad Nettles M.D. Admitting Physician: Saad Nettles M.D. SUBJECTIVE Historian: Patient Reliability: Fair Chief Complaint: Abdominal pain nausea and vomiting History of Present Illness: The patient is a 65-year-old white female with a significant past medical history of recurrent small bowel obstruction, Crohn's disease, intracranial aneurysm, hypertension, COPD, generalized anxiety disorder, allergic rhinitis, who presented to [facility] emergency room on the day of admission secondary to complaints of nausea vomiting and abdominal pain. [facility] ER evaluation was consistent with small bowel obstruction. Secondary to the above, the patient was admitted by Saad Nettles M.D. for further evaluation and treatment. The history of present illness began one day prior to admission when the patient developed left-sided abdominal pain. This pain progressed over the next 24 hours and became severe prior to presentation. It was associated with nausea and vomiting. The patient denied any history of hematemesis. There was no hematochezia/melena. The patient with no aggravating or relieving factors. There is no associated fever or chills. Secondary to increasing abdominal pain, recurrent emesis, and ongoing nausea the patient presented to [facility] emergency department for further evaluation and treatment. [facility] ER evaluation was consistent with small bowel obstruction with associated dehydration. Secondary to the above, the patient was admitted for further evaluation and treatment. PAST MEDICAL HISTORY Illnesses: 1. Crohn's disease-status post subtotal colectomy 2. Recurrent small bowel obstruction 3. Hypertension 4. Intracranial aneurysm 5. COPD 6. Generalized anxiety disorder 7. Migraine headaches Allergies: 1. Codeine 2. Demerol 3. Solu-Medrol 4. Prednisone Medications: 1. Amlodipine Besylate Oral 2.5 mg, 2x a day. 2. Aspirin Oral (Tablet 81 mg) 1 tablet, q day. 3. ClonazePAM Oral 1 mg, 4x a day. 4. Imitrex Oral (Tablet 100 mg) 1 tablet, PRN. 5. Lopressor Oral (Tablet 100 mg) 1-1/2 tablets, 2x a day. 6. Percocet Oral 5/325 mg (at night). 7. Vicodin Oral 7.5 mg, 4x a day (during the day). Surgery: 1. Intracranial aneurysm clipping 2. Subtotal colectomy 3. Cholecystectomy 4. Hysterectomy 5. Appendectomy 6. Tonsillectomy 7. Lumpectomy left breast Injuries: 1. No significant Hospitalizations: 1. For above surgery and medical problems FAMILY HISTORY Parents: 1. Father, history unknown, 2. Mother, , 49, intracranial aneurysm Siblings: 1. Female, , myocardial infarction 2. Female, , lung cancer 3. Male, living, history unknown Children: 1. Female, living, 35, developmental disability Other significant family history: No significant SOCIAL HISTORY 1. Marital Status: 2. Judaism: None 3. Education: High school 4. 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 Occupational health exposures: No significant HABITS 1. Tobacco: Former smoker, amount unknown, stopped 2015 2. Drugs: None 3. Alcohol: None 4. Caffeine: One cup coffee per day HEALTH SUPERVISION Item/Test 1. Not reviewed IMMUNIZATIONS: 1. Pneumococcal: 2015 2. Influenza: 2015 3. Tetanus: 2015 ADVANCED DIRECTIVES: 1. Code Status: FULL CODE REVIEW OF SYSTEMS Remarkable for those things stated in the history of present illness and past medical history. Seventeen point review of system completed with the following notable findings: Gastrointestinal: Left-sided abdominal pain, nausea, vomiting Psychological: Anxiety Physical Exam Vital Signs / I&Os Vital Signs Date Time Temp Pulse Resp B/P Pulse O2 O2 Flow FiO2 Ox Delivery Rate 09/22 0154 98.1 76 18 123/78 92 Room Air 0.0 General Appearance Alert, Oriented X3, Cooperative, No acute distress HEENT Atraumatic, EOMI, Moist mucous membranes Lungs Scattered rhonchi otherwise CTA Neck Supple, No JVD Cardiovascular Regular rate and rhythm, Normal S1 and S2, No murmurs, gallops, rubs Abdomen Hypoactive BS, mild diffuse tenderness, no rebound Extremities No cyanosis, No clubbing, No edema, Normal pulses Neurological Cranial nerves intact, Strength 5/5 x4 ext's, No lateralizing signs Psych/Mental Status Mental status normal, Mood normal LAB Results Laboratory Tests 09/21 09/21 5885 2130 Chemistry Plasma Sodium (136 - 145 mmol/L) 142 Plasma Potassium (3.5 - 5.1 mmol/L) 3.5 Plasma Chloride (98 - 107 mmol/L) 104 CO2 (Enzymatic) (21 - 32 mmol/L) 24 BUN (7 - 18 mg/dL) 22 Creatinine (0.6 - 1.3 mg/dL) 0.7 Est GFR ( Amer) (mL/min) >60 Est GFR (Non-Af Amer) (mL/min) >60 Glucose (70 - 110 mg/dL) 134 Plasma Calcium (8.5 - 10.1 mg/dL) 9.2 Total Bilirubin (0.0 - 1.0 mg/dL) 0.4 AST (15 - 37 U/L) 18 ALT (12 - 78 U/L) 19 Alkaline Phosphatase (46 - 116 U/L) 131 Total Protein (6.4 - 8.2 g/dL) 8.3 Albumin (3.3 - 5.0 g/dL) 3.1 Amylase (25 - 115 U/L) 19 Lipase (73 - 393 U/L) 65 Hematology WBC (4.5 - 11.5 K/uL) 9.3 RBC (4.00 - 5.20 M/uL) 4.81 Hgb (12.0 - 16.0 gm/dL) 14.6 Hct (36.0 - 46.0 %) 44.1 MCV (80 - 100 fL) 92 MCH (26 - 34 pg) 30 RDW (11.6 - 14.8 %) 14.1 Neut % (Auto) (50 - 75 %) 74.9 Lymph % (Auto) (25 - 40 %) 17.2 [place] % (Auto) (3 - 14 %) 7.4 Eos % (Auto) (0 - 4 %) 0.3 Baso % (Auto) (0 - 2 %) 0.2 Plt Count, EDTA (150 - 400 K/uL) 354 PUBS MCHC (31 - 37 g/dL) 33 Urines Urine Color YELLOW Urine Appearance CLEAR Urine pH (5.0 - 8.0) 6.0 Ur Specific [place] (1.010 - 1.030) 1.020 Urine Protein (NEGATIVE) NEGATIVE Urine Ketones (NEGATIVE) 3+ Urine Blood (NEGATIVE) TRACE-INTACT Urine Nitrite (NEGATIVE) NEGATIVE Urine Bilirubin (NEGATIVE) NEGATIVE Urine Urobilinogen (0.2 - 1.0 EU/dL) 0.2 Ur Leukocyte Esterase (NEGATIVE) POSITIVE Urine RBC (0 - 1 rbc/hpf) 1-3 Urine WBC (0 - 1 wbc/hpf) 1-3 Ur Epithelial Cells (0 - 5 EPI/hpf) 1-3 Urine Bacteria (NONE SEEN) FEW (1+) Urine Glucose (NEGATIVE) NEGATIVE Urine Comment CULTURE INDICATED Microbiology Date/Time Procedure - Status Source Growth 09/21 2254 Urine Culture - RECD URINE CC Imaging Abdominal X-Ray IMPRESSION: 1. Colectomy 2. Dilated loops of small bowel suggestive of small bowel obstruction. Ileus and gastroenteritis are additional possibilities Dictated by: TOBY VILLARREAL MD D: AUDRA;09/21/16 0166 Assessment and Plan Problem List 1. Small bowel obstruction Plan -Patient presents with findings of small bowel obstruction with associated nausea and vomiting -NG tube -IV fluids -Monitor -Consider surgical consultation 2. Migraine Plan -Patient with history of migraine headaches -Imitrex when necessary -Not problematic at this time 3. Generalized anxiety disorder Plan -Patient with history of generalized anxiety disorder with chronic benzodiazepine usage -Ativan IV when necessary -Monitor closely with use of benzodiazepines and opiates -End tidal CO2 monitor 4. Abnormal urinalysis Status Acute Onset Date Unknown Plan -Abnormal UA -Leuk Esterase only -monitor, no antibiotics at this time. 5. Hyperglycemia Status Acute Onset Date Unknown Plan -Mild -no history of DM -Check FBS, HbA1c 6. Hypertension Plan -Patient with history of hypertension -Blood pressure well controlled at this time -Monitor with addition of antihypertensive as necessary -Low-salt diet when taking well -Continue outpatient medical regimen when taking well orally Current status: Fair, unstable Anticipated discharge date: Anticipated discharge in 2-3 days Anticipated discharge placement: Home Patient care time: Time spent in chart review, patient interview, physical exam, CPOE, and care documentation: 70 minutes Visit to patient today: 1 Complexity of care: High E&M Codes Admission: Inpt-High/[id number]
--- NOTE | 2016-09-22 02:17 | Progress Note ---
Subjective General Admission History and Physical Examination Patient Name: Connie Monteiro Admission Date: September 22, 2016 Primary Care Provider: Bobby Acuna M.D. Attending Physician: Saad Nettles M.D. Admitting Physician: Saad Nettles M.D. SUBJECTIVE Historian: Patient Reliability: Fair Chief Complaint: Abdominal pain nausea and vomiting History of Present Illness: The patient is a 65-year-old white female with a significant past medical history of recurrent small bowel obstruction, Crohn's disease, intracranial aneurysm, hypertension, COPD, generalized anxiety disorder, allergic rhinitis, who presented to [facility] emergency room on the day of admission secondary to complaints of nausea vomiting and abdominal pain. [facility] ER evaluation was consistent with small bowel obstruction. Secondary to the above, the patient was admitted by Saad Nettles M.D. for further evaluation and treatment. The history of present illness began one day prior to admission when the patient developed left-sided abdominal pain. This pain progressed over the next 24 hours and became severe prior to presentation. It was associated with nausea and vomiting. The patient denied any history of hematemesis. There was no hematochezia/melena. The patient with no aggravating or relieving factors. There is no associated fever or chills. Secondary to increasing abdominal pain, recurrent emesis, and ongoing nausea the patient presented to [facility] emergency department for further evaluation and treatment. [facility] ER evaluation was consistent with small bowel obstruction with associated dehydration. Secondary to the above, the patient was admitted for further evaluation and treatment. PAST MEDICAL HISTORY Illnesses: 1. Crohn's disease-status post subtotal colectomy 2. Recurrent small bowel obstruction 3. Hypertension 4. Intracranial aneurysm 5. COPD 6. Generalized anxiety disorder 7. Migraine headaches Allergies: 1. Codeine 2. Demerol 3. Solu-Medrol 4. Prednisone Medications: 1. Amlodipine Besylate Oral 2.5 mg, 2x a day. 2. Aspirin Oral (Tablet 81 mg) 1 tablet, q day. 3. ClonazePAM Oral 1 mg, 4x a day. 4. Imitrex Oral (Tablet 100 mg) 1 tablet, PRN. 5. Lopressor Oral (Tablet 100 mg) 1-1/2 tablets, 2x a day. 6. Percocet Oral 5/325 mg (at night). 7. Vicodin Oral 7.5 mg, 4x a day (during the day). Surgery: 1. Intracranial aneurysm clipping 2. Subtotal colectomy 3. Cholecystectomy 4. Hysterectomy 5. Appendectomy 6. Tonsillectomy 7. Lumpectomy left breast Injuries: 1. No significant Hospitalizations: 1. For above surgery and medical problems FAMILY HISTORY Parents: 1. Father, history unknown, 2. Mother, , 49, intracranial aneurysm Siblings: 1. Female, , myocardial infarction 2. Female, , lung cancer 3. Male, living, history unknown Children: 1. Female, living, 35, developmental disability Other significant family history: No significant SOCIAL HISTORY 1. Marital Status: 2. Yazidi: None 3. Education: High school 4. 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 Occupational health exposures: No significant HABITS 1. Tobacco: Former smoker, amount unknown, stopped 2015 2. Drugs: None 3. Alcohol: None 4. Caffeine: One cup coffee per day HEALTH SUPERVISION Item/Test 1. Not reviewed IMMUNIZATIONS: 1. Pneumococcal: 2015 2. Influenza: 2015 3. Tetanus: 2015 ADVANCED DIRECTIVES: 1. Code Status: FULL CODE REVIEW OF SYSTEMS Remarkable for those things stated in the history of present illness and past medical history. Seventeen point review of system completed with the following notable findings: Gastrointestinal: Left-sided abdominal pain, nausea, vomiting Psychological: Anxiety Physical Exam Vital Signs / I&Os Vital Signs Date Time Temp Pulse Resp B/P Pulse O2 O2 Flow FiO2 Ox Delivery Rate 09/22 0154 98.1 76 18 123/78 92 Room Air 0.0 General Appearance Alert, Oriented X3, Cooperative, No acute distress HEENT Atraumatic, EOMI, Moist mucous membranes Lungs Scattered rhonchi otherwise CTA Neck Supple, No JVD Cardiovascular Regular rate and rhythm, Normal S1 and S2, No murmurs, gallops, rubs Abdomen Hypoactive BS, mild diffuse tenderness, no rebound Extremities No cyanosis, No clubbing, No edema, Normal pulses Neurological Cranial nerves intact, Strength 5/5 x4 ext's, No lateralizing signs Psych/Mental Status Mental status normal, Mood normal LAB Results Laboratory Tests 09/21 09/21 3925 2130 Chemistry Plasma Sodium (136 - 145 mmol/L) 142 Plasma Potassium (3.5 - 5.1 mmol/L) 3.5 Plasma Chloride (98 - 107 mmol/L) 104 CO2 (Enzymatic) (21 - 32 mmol/L) 24 BUN (7 - 18 mg/dL) 22 Creatinine (0.6 - 1.3 mg/dL) 0.7 Est GFR ( Amer) (mL/min) >60 Est GFR (Non-Af Amer) (mL/min) >60 Glucose (70 - 110 mg/dL) 134 Plasma Calcium (8.5 - 10.1 mg/dL) 9.2 Total Bilirubin (0.0 - 1.0 mg/dL) 0.4 AST (15 - 37 U/L) 18 ALT (12 - 78 U/L) 19 Alkaline Phosphatase (46 - 116 U/L) 131 Total Protein (6.4 - 8.2 g/dL) 8.3 Albumin (3.3 - 5.0 g/dL) 3.1 Amylase (25 - 115 U/L) 19 Lipase (73 - 393 U/L) 65 Hematology WBC (4.5 - 11.5 K/uL) 9.3 RBC (4.00 - 5.20 M/uL) 4.81 Hgb (12.0 - 16.0 gm/dL) 14.6 Hct (36.0 - 46.0 %) 44.1 MCV (80 - 100 fL) 92 MCH (26 - 34 pg) 30 RDW (11.6 - 14.8 %) 14.1 Neut % (Auto) (50 - 75 %) 74.9 Lymph % (Auto) (25 - 40 %) 17.2 [place] % (Auto) (3 - 14 %) 7.4 Eos % (Auto) (0 - 4 %) 0.3 Baso % (Auto) (0 - 2 %) 0.2 Plt Count, EDTA (150 - 400 K/uL) 354 PUBS MCHC (31 - 37 g/dL) 33 Urines Urine Color YELLOW Urine Appearance CLEAR Urine pH (5.0 - 8.0) 6.0 Ur Specific [place] (1.010 - 1.030) 1.020 Urine Protein (NEGATIVE) NEGATIVE Urine Ketones (NEGATIVE) 3+ Urine Blood (NEGATIVE) TRACE-INTACT Urine Nitrite (NEGATIVE) NEGATIVE Urine Bilirubin (NEGATIVE) NEGATIVE Urine Urobilinogen (0.2 - 1.0 EU/dL) 0.2 Ur Leukocyte Esterase (NEGATIVE) POSITIVE Urine RBC (0 - 1 rbc/hpf) 1-3 Urine WBC (0 - 1 wbc/hpf) 1-3 Ur Epithelial Cells (0 - 5 EPI/hpf) 1-3 Urine Bacteria (NONE SEEN) FEW (1+) Urine Glucose (NEGATIVE) NEGATIVE Urine Comment CULTURE INDICATED Microbiology Date/Time Procedure - Status Source Growth 09/21 2254 Urine Culture - RECD URINE CC Imaging Abdominal X-Ray IMPRESSION: 1. Colectomy 2. Dilated loops of small bowel suggestive of small bowel obstruction. Ileus and gastroenteritis are additional possibilities Dictated by: TOBY VILLARREAL MD D: AUDRA;09/21/16 3243 Assessment and Plan Problem List 1. Small bowel obstruction Plan -Patient presents with findings of small bowel obstruction with associated nausea and vomiting -NG tube -IV fluids -Monitor -Consider surgical consultation 2. Migraine Plan -Patient with history of migraine headaches -Imitrex when necessary -Not problematic at this time 3. Generalized anxiety disorder Plan -Patient with history of generalized anxiety disorder with chronic benzodiazepine usage -Ativan IV when necessary -Monitor closely with use of benzodiazepines and opiates -End tidal CO2 monitor 4. Abnormal urinalysis Status Acute Onset Date Unknown Plan -Abnormal UA -Leuk Esterase only -monitor, no antibiotics at this time. 5. Hyperglycemia Status Acute Onset Date Unknown Plan -Mild -no history of DM -Check FBS, HbA1c 6. Hypertension Plan -Patient with history of hypertension -Blood pressure well controlled at this time -Monitor with addition of antihypertensive as necessary -Low-salt diet when taking well -Continue outpatient medical regimen when taking well orally Current status: Fair, unstable Anticipated discharge date: Anticipated discharge in 2-3 days Anticipated discharge placement: Home Patient care time: Time spent in chart review, patient interview, physical exam, CPOE, and care documentation: 70 minutes Visit to patient today: 1 Complexity of care: High E&M Codes Admission: Inpt-High/83329
[2016-09-22 06:53] VITALS: BP 138/80
--- NOTE | 2016-09-22 07:29 | ED DISCHARGE INSTRUCTIONS ---
Patient: NATE GONZALEZ General Instructions [facility] VisitID: [id number] [address] [place] [address] 65y, F Registration Date/Time: 09/21/2016 Bowel obstruction. asymptomatic bacteriuria. (Electronically signed by Jeff Sadler MD 09/22/2016 2:02)
--- NOTE | 2016-09-22 07:29 | ED MED RECONCILIATION SUMMARY ---
Patient: NATE GONZALEZ Medication Reconciliation Report [facility] VisitID: [id number] [address] [place] [address] 65y, F Registration Date/Time: 09/21/2016 Weight: 60.7 kg Height/Length: 63 in. BMI: 23.7 ALLERGIES: Demerol The patient's Home Medications are listed below: THE FOLLOWING MEDICATIONS NEED TO BE RECONCILED: AmLODIPine Besylate Oral 2.5 mg, 2x a day Aspirin Oral (81 mg) 1 tablet, q day ClonazePAM Oral 1 mg, 4x a day Imitrex Oral (100 mg) 1 tablet, PRN Lopressor Oral (100 mg) 1-1/2 tablets, 2x a day Percocet Oral 5/325 mg, at night Vicodin Oral 7.5 mg, 4x a day, during the day The source(s) of the original Home Medication information: Not obtained. The following Medications were given to the patient in the Emergency Department: Zofran [IVP] IVP 4 mg, administered: 09/21/2016 9:38:00 PM IV NS IV Fluids bolus 1000 mL wide open, administered: 09/21/2016 9:39:00 PM Dilaudid [IVP] IVP 0.5 mg, administered: 09/21/2016 9:52:00 PM Dilaudid [IVP] IVP 1 mg, administered: 09/21/2016 11:23:00 PM The following Medications were prescribed to the patient: None.
--- NOTE | 2016-09-22 07:29 | ED DISCHARGE INSTRUCTIONS ---
Patient: NATE GONZALEZ General Instructions [facility] VisitID: [id number] [address] [place] [address] 65y, F Registration Date/Time: 09/21/2016 Bowel obstruction. asymptomatic bacteriuria. (Electronically signed by Jeff Sadler MD 09/22/2016 2:02)
--- NOTE | 2016-09-22 07:29 | ED MAR SUMMARY ---
..... Medication Administration Record [facility] [address] [place] [address] Patient: NATE GONZALEZ Visit ID: [id number] 65y, F Weight: 60.7 kg Height/Length: 63 in BMI: 23.7 ALLERGIES: Demerol Given 21:38 09/21/2016 Dorinda Valencia, Medication Administered: ZOFRAN [IVP] (ONDANSETRON HCL), Dose: 4 mg IVP over 1 minute(s), Site: #1 right AC. Medication Ordered: Zofran IV 4 mg (NOW). Start 21:39 09/21/2016 Dorinda Valencia,, Stop 01:13 09/22/2016 Dorinda Valencia, Medication Administered: IV NS (SALINE), Dose: IV Fluids, Bolus: 1000 mL wide open, Dispensed: 1000 mL bag, Site: #1 right AC. Medication Ordered: IV NS : initial bolus 1000 mL (1000 mL/hr), then 150 mL/hr for 4h (NOW); Urgent. Given 21:52 09/21/2016 Dorinda Valencia, Medication Administered: DILAUDID [IVP] (HYDROMORPHONE HCL PF), Dose: 0.5 mg IVP over 1 minute(s), Site: #1 right AC. Medication Ordered: Dilaudid IV 0.5 mg (HIGH ALERT MEDICATION, NOW). Given 23:23 09/21/2016 Dorinda Valencia, Medication Administered: DILAUDID [IVP] (HYDROMORPHONE HCL PF), Dose: 1 mg IVP over 1 minute(s), Site: #1 right AC. Medication Ordered: Dilaudid IV 1 mg (HIGH ALERT MEDICATION, NOW).
--- NOTE | 2016-09-22 07:29 | ED MED RECONCILIATION SUMMARY ---
Patient: NATE GONZALEZ Medication Reconciliation Report [facility] VisitID: [id number] [address] [place] [address] 65y, F Registration Date/Time: 09/21/2016 Weight: 60.7 kg Height/Length: 63 in. BMI: 23.7 ALLERGIES: Demerol The patient's Home Medications are listed below: THE FOLLOWING MEDICATIONS NEED TO BE RECONCILED: AmLODIPine Besylate Oral 2.5 mg, 2x a day Aspirin Oral (81 mg) 1 tablet, q day ClonazePAM Oral 1 mg, 4x a day Imitrex Oral (100 mg) 1 tablet, PRN Lopressor Oral (100 mg) 1-1/2 tablets, 2x a day Percocet Oral 5/325 mg, at night Vicodin Oral 7.5 mg, 4x a day, during the day The source(s) of the original Home Medication information: Not obtained. The following Medications were given to the patient in the Emergency Department: Zofran [IVP] IVP 4 mg, administered: 09/21/2016 9:38:00 PM IV NS IV Fluids bolus 1000 mL wide open, administered: 09/21/2016 9:39:00 PM Dilaudid [IVP] IVP 0.5 mg, administered: 09/21/2016 9:52:00 PM Dilaudid [IVP] IVP 1 mg, administered: 09/21/2016 11:23:00 PM The following Medications were prescribed to the patient: None.
--- NOTE | 2016-09-22 07:29 | ED MAR SUMMARY ---
..... Medication Administration Record [facility] [address] [place] [address] Patient: NATE GONZALEZ Visit ID: [id number] 65y, F Weight: 60.7 kg Height/Length: 63 in BMI: 23.7 ALLERGIES: Demerol Given 21:38 09/21/2016 Dorinda Valencia, Medication Administered: ZOFRAN [IVP] (ONDANSETRON HCL), Dose: 4 mg IVP over 1 minute(s), Site: #1 right AC. Medication Ordered: Zofran IV 4 mg (NOW). Start 21:39 09/21/2016 Dorinda Valencia,, Stop 01:13 09/22/2016 Dorinda Valencia, Medication Administered: IV NS (SALINE), Dose: IV Fluids, Bolus: 1000 mL wide open, Dispensed: 1000 mL bag, Site: #1 right AC. Medication Ordered: IV NS : initial bolus 1000 mL (1000 mL/hr), then 150 mL/hr for 4h (NOW); Urgent. Given 21:52 09/21/2016 Dorinda Valencia, Medication Administered: DILAUDID [IVP] (HYDROMORPHONE HCL PF), Dose: 0.5 mg IVP over 1 minute(s), Site: #1 right AC. Medication Ordered: Dilaudid IV 0.5 mg (HIGH ALERT MEDICATION, NOW). Given 23:23 09/21/2016 Dorinda Valencia, Medication Administered: DILAUDID [IVP] (HYDROMORPHONE HCL PF), Dose: 1 mg IVP over 1 minute(s), Site: #1 right AC. Medication Ordered: Dilaudid IV 1 mg (HIGH ALERT MEDICATION, NOW).
[2016-09-22 10:58] VITALS: BP 132/77
[2016-09-22 15:02] VITALS: BP 126/68
[2016-09-22 18:01] VITALS: BP 133/78
[2016-09-22 23:00] VITALS: BP 136/78
[2016-09-23 02:27] VITALS: BP 145/84
[2016-09-23 07:21] VITALS: BP 141/76
[2016-09-23 11:40] VITALS: BP 125/72
[2016-09-23 14:32] VITALS: BP 117/70
--- NOTE | 2016-09-23 18:01 | Progress Note ---
Subjective General Pt seen and examined. Patient has been doing well overnight with no complaints. On exam this morning patient still has infrequent bowel sounds and they are high pitched. Patient is still having out put. Constitutional Denies: Fever, Chills, Sweats, Weakness, Malaise, Other. Eyes Denies: Pain, Vision Change, Conjunctival Inflammation, Eyelid Inflammation, Redness, Other. ENT Denies: Ear Pain, Ear Discharge, Nose Pain, Nasal Discharge, Nasal Congestion, Mouth Pain, Mouth Swelling, Throat Pain, Throat Swelling, Other. Respiratory Denies: Cough, Dry, SOB w/exertion, Wheezing, Hemoptysis, Pleuritic Pain, Sputum , Other. Cardiovascular Denies: Chest Pain, Palpitations, Orthopnea, PND, Edema, Light-headedness, Other. Gastrointestinal Nausea, Abdominal Pain. Denies: Vomiting, Diarrhea, Constipation, Melena, Hematochezia, Other. Genitourinary Denies: Dysuria, Frequency, Incontinence, Hematuria, Retention, Other. Musculoskeletal Denies: Neck Pain, Shoulder Pain, Arm Pain, Back Pain, Hand Pain, Leg Pain, Foot Pain, Other. Physical Exam Vital Signs / I&Os Vital Signs Date Time Temp Pulse Resp B/P Pulse O2 O2 Flow FiO2 Ox Delivery Rate 09/23 1432 97.2 76 16 117/70 92 Nasal 2.0 Cannula 09/23 1140 98.6 75 15 125/72 92 Nasal 2.0 Cannula 09/23 0810 Nasal 2.0 Cannula 09/23 0721 98.8 86 16 141/76 93 Nasal 2.0 Cannula 09/23 0316 74 10 92 2.0 09/23 0227 98.6 77 13 145/84 96 Nasal 2.0 Cannula 09/23 0159 77 11 92 2.0 09/22 2330 76 10 91 2.0 09/22 2304 Nasal 2.0 Cannula 09/22 2300 98.1 70 16 136/78 98 Nasal 2.0 Cannula 09/22 2131 80 16 95 2.0 09/22 2006 79 15 93 2.0 09/22 1801 98.2 77 14 133/78 96 Nasal 2.0 Cannula I&O 09/22 0800 02/08 1600 09 0000 Intake Total 579 692 Output Total 400 350 375 Balance -400 229 317 General Appearance Alert, Oriented X3, No acute distress HEENT Atraumatic, PERRLA, Moist mucous membranes Lungs Clear to auscultation, Normal air movement Cardiovascular Normal S1 and S2, No murmurs, gallops, rubs Abdomen - high pitched bowel sounds spaced widely apart Extremities No clubbing, No edema, left knee pain Neurological Normal gait, Normal speech LAB Results Laboratory Tests 09/23 0525 Chemistry Plasma Sodium (136 - 145 mmol/L) 140 Plasma Potassium (3.5 - 5.1 mmol/L) 3.8 Plasma Chloride (98 - 107 mmol/L) 106 CO2 (Enzymatic) (21 - 32 mmol/L) 23 BUN (7 - 18 mg/dL) 10 Creatinine (0.6 - 1.3 mg/dL) 0.5 Est GFR ( Amer) (mL/min) >60 Est GFR (Non-Af Amer) (mL/min) >60 Glucose (70 - 110 mg/dL) 113 Plasma Calcium (8.5 - 10.1 mg/dL) 7.8 Hematology WBC (4.5 - 11.5 K/uL) 6.9 RBC (4.00 - 5.20 M/uL) 3.67 Hgb (12.0 - 16.0 gm/dL) 11.3 Hct (36.0 - 46.0 %) 33.9 MCV (80 - 100 fL) 92 MCH (26 - 34 pg) 31 RDW (11.6 - 14.8 %) 14.1 Neut % (Auto) (50 - 75 %) 60.7 Lymph % (Auto) (25 - 40 %) 26.5 Casey % (Auto) (3 - 14 %) 11.8 Eos % (Auto) (0 - 4 %) 0.7 Baso % (Auto) (0 - 2 %) 0.3 Plt Count, EDTA (150 - 400 K/uL) 264 PUBS MCHC (31 - 37 g/dL) 33 Assessment and Plan Problem List 1. Small bowel obstruction Plan - will c/w ng suction - output is decreasing - will reassess tomorrow about discontinuation 2. Abdominal pain Plan - pain medication as needed 3. Nausea Plan - anti-emetics as needed
[2016-09-23 18:43] VITALS: BP 126/68
[2016-09-23 22:35] VITALS: BP 128/69
[2016-09-24 02:50] VITALS: BP 124/73
[2016-09-24 07:06] VITALS: BP 129/74
[2016-09-24 10:03] VITALS: BP 134/85
--- NOTE | 2016-09-24 13:22 | DIAGNOSTIC IMAGING REPORT ---
PROCEDURE: XR SBFT WITH GASTROGRAFIN INDICATION: SBO VS partial SBO TECHNIQUE: [employer] image of the abdomen was obtained. The patient was administered 240 ml of gastrographin via the existing nasogastric tube. Multiple overhead views obtained. COMPARISON: Abdomen 09/21/2016 FINDINGS: Several demonstrates multiple surgical clips in the abdomen, pelvis and suture line in the pelvis. NG tube coiled in the stomach. Moderately distended small bowel. Films obtained at 30 minutes and 1.5 hours demonstrate moderate distention of the small bowel. 2 hour 50-minute film demonstrates contrast in the rectum. IMPRESSION: 1. Chronically distended bowel with delayed transit time consistent with partial small bowel obstruction versus ileus 2. NG tube in place
[2016-09-24 14:38] VITALS: BP 128/81
[2016-09-24 18:28] VITALS: BP 132/71
[2016-09-24 22:40] VITALS: BP 147/91
[2016-09-25 02:31] VITALS: BP 118/73
[2016-09-25 06:54] VITALS: BP 142/80
[2016-09-25 10:59] VITALS: BP 124/92
[2016-09-25 14:40] VITALS: BP 127/80
[2016-09-25 18:46] VITALS: BP 121/62
[2016-09-25 23:06] VITALS: BP 115/67
[2016-09-26 02:46] VITALS: BP 113/62
[2016-09-26 06:22] VITALS: BP 132/77
[2016-09-26] MEDS ORDERED: LOPRESSOR25 MG PO (08:57)
--- NOTE | 2016-09-26 09:18 | Provider's Discharge Care Plan ---
Problem, Goal, Plan Problem List 1. Small bowel obstruction Goals: Improve disease control, Improve function, Improved health/wellness, Prevent disease progress Instructions: Follow up as directed, Increase activity level, Take meds as directed, Reduce stress, continue soft diet in small amts. 2. Crohn disease Goals: Improve disease control, Improve function, Improved health/wellness, Increase independence Instructions: Follow up as directed, Increase activity level, Take meds as directed, Reduce stress 3. Migraine Goals: Improve disease control, Improve function, Improved health/wellness, Increase independence, Improve nutrition status, Prevent disease progress Instructions: Follow up as directed, Increase activity level, Take meds as directed, Reduce stress, continue sumatriptan as needed for flares of severe headache. 4. Hypertension Goals: Improve disease control, Improve function, Improved health/wellness, Increase independence, Improve nutrition status, Prevent disease progress Instructions: Follow up as directed, Increase activity level, Take meds as directed, Reduce stress, continue metroprolol at reduced dose of 25 mg (1/2 tab of 50mg) every 12 h. Continue amlodipine at 2.5 mg every evening. every 12h 5. Urinary tract infection Goals: Improve function, Improved health/wellness, Increase independence Instructions: Follow up as directed, Increase activity level, Reduce stress, Drink plenty of liquids. , No further antibiotics are needed. 6. Generalized anxiety disorder Goals: Improve disease control, Improve function, Improved health/wellness, Increase independence Instructions: Follow up as directed, Increase activity level, Take meds as directed, Reduce stress, continue clonazepam 1 mg 3-4 times/d as directed.
--- NOTE | 2016-09-26 13:53 | DISCHARGE SUMMARY ---
ADMIT DATE: 09/22/2016 DISCHARGE DATE: 09/26/2016 ADMITTING DIAGNOSIS: 1. Probable abdominal pain and vomiting, probable small-bowel obstruction or partial small-bowel obstruction with a history of multiple surgeries and a history of underlying Crohn disease DISCHARGE DIAGNOSES: 1. Partial small bowel obstruction with aggravation 2. Underlying history of multiple abdominal surgeries and distal small bowel stricture near anastomosis between the distal small bowel and rectal pouch 3. Underlying Crohn disease, currently not clinically active 4. Other chronic problems include hypertension 5. Migraine headache disorder 6. History of intracranial aneurysm 7. Mild chronic obstructive pulmonary disease 8. Generalized anxiety disorder 9. Urinary tract infection PROCEDURE: 1. None BRIEF HISTORY: Please see the history and physical exam from Dr. Nettles regarding details of the admission. HOSPITAL COURSE: The patient is a 65-year-old woman who has had multiple admissions to this hospital for similar presentation. She became quite ill with nausea and vomiting and abdominal pain and presented to the emergency department. She showed evidence of small-bowel obstruction on x-ray and was admitted and started on IV fluids and nasogastric suctioning. She gradually improved with this. She was able to start to pass small amounts of stool. On the third hospital day, she had a Gastrografin small bowel follow through study done. This showed the small bowel to be open, though the transit time was reduced at about 2 hours and 50 minutes. Nevertheless, she started having quite a few stools after the procedure, and it was felt that she was back to baseline. NG tube was removed. She was started on a clear liquid diet. She was able to tolerate this, and then the next morning she was advanced to a full liquid diet. She did have some emesis with this and then backed off a little bit. Over the next 24 hours; however, she was able to resume the full liquid diet and on the day of discharge, 09/26/2016, she was doing quite well and felt that she was able to keep her full liquid diet down without difficulty and felt her bowel movements were back to baseline and it was felt she was doing well enough to be discharged home. During her hospitalization, she did have urinalysis and urine culture done. This grew out E. coli, and she was started on cefazolin 1 g every 12 hours and had about 6 doses of this before her discharge -------. I felt this was adequate. She was not having any symptoms of discomfort with urination by the time of her discharge. During her hospitalization, her blood pressure was a little bit on the lower side for her. She will resume her blood pressure medications once she is discharged and will resume at a lower dose than her usual dose. She will plan to follow up at my office at her next regularly scheduled visit. DISCHARGE INSTRUCTIONS/MEDICATIONS: Disposition: The patient will continue with her pain medication regimen of hydrocodone 7.5 APAP 325 one 4 times daily during the day for pain, and will continue with oxycodone 10 mg at bedtime and 10 mg at night for pain control. She will also continue with clonazepam 1 mg 4 times daily for chronic anxiety disorder. She may continue sumatriptan for migraine headaches at 100 mg at onset of migraine headache, to be repeated in 2-3 hours if necessary if headache does not resolve. She will restrict herself to 2 tablets per 24 hour time frame. She will continue with amlodipine 2.5 mg at bedtime for blood pressure control and will continue with metoprolol tartrate 25 mg q.12 hours for blood pressure control and will plan to follow up at my office regarding this. If she seemed to have worsening of this, she will call. She will drink plenty of liquids. She will not continue on an antibiotic. She has been taking sertraline for depression off and on, but feels this caused some adverse side effects and will hold off on this for the time being unless she starts to feel significantly more depressed. She will continue with a limited soft diet and a full liquid diet. Should she worsen prior to her office visit, she will either call my office or return to the emergency room for evaluation.
== END 2016-09-26 09:45 | disposition home or self-care (01) | DRG 389 ==
LOC: ED SRH 21:11 → ACUTE2 SRH 09-22 00:14 → TRANS SRH 09-22 00:14 → ACUTE2 SRH 09-22 00:14 → TRANS SRH 09-22 00:14 → ACUTE2 SRH 09-22 01:38
PROVIDERS: ADMIT Internal Medicine
PROC: 0D9670Z Drainage of Stomach with Drainage Device, Via Natural or Artificial Opening (ICD-10-PCS; principal; 2016-09-21)
DX: K56.60 Unspecified intestinal obstruction (principal); N39.0 Urinary tract infection, site not specified; B96.20 Unspecified Escherichia coli [E. coli] as the cause of diseases classified elsewhere; I10 Essential (primary) hypertension; J44.9 Chronic obstructive pulmonary disease, unspecified; F41.1 Generalized anxiety disorder; Z90.49 Acquired absence of other specified parts of digestive tract; Z87.19 Personal history of other diseases of the digestive system
CPT/HCPCS: 81523; 90004; 90047; 90074; 90100; 90148; 90469; 91286; 92235; 92530; 92720; 95059

== ENCOUNTER 2016-10-20 12:58 | Outpatient (CLI) | payer OTHER ==
[~2016-10-20 12:58] MED LIST changes: +LOPRESSOR25 MG PO; +SERTRALINE HCL25 MG PO
== END 2016-10-20 23:00 ==
LOC: MRI SRH 12:58
DX: M25.561 Pain in right knee (principal)

== ENCOUNTER 2016-12-08 10:00 | Outpatient (CLI) | payer OTHER ==
--- NOTE | 2016-12-08 15:36 | DIAGNOSTIC IMAGING REPORT ---
PROCEDURE: XR KNEE ARTHROGRAM - RIGHT INDICATION: Right knee pain. Aneurysm clip reportedly precludes MRI (although surgery performed in 1989 - - type of clip unspecified). TECHNIQUE: The patient was advised of the usual risks and complications including infection, bleeding and allergy. Supine position. sterile preparation and 1% lidocaine anesthetic, fluoroscopic guidance (2.6 minutes, 272.01 mGy) was utilized to place a 22-gauge spinal needle into the ventral lateral right patellofemoral joint. A 35 ml solution (20 ml Isovue 200, 10 ml of normal saline, 5 ml 1% lidocaine) were infused. was infused. Subsequently, 2 mL 40 mg/mL Kenalog was infused and the needle was withdrawn. COMPARISON: Comparison made radiographs of the right knee on 09/10/2016. FINDINGS: AP and lateral views. Confirmation of intraarticular injection. Findings suggest popliteal cyst. The patient tolerated the procedure reasonably well and was transferred to CT in satisfactory condition with instructions to resume routine activity the following day, and to call for any untoward symptoms (increasing pain/swelling). IMPRESSION: 1. Successful fluoroscopically guided diagnostic/therapeutic injection of the right knee joint (pre MRI). 2. Findings suggest popliteal cyst. 3. Otherwise negative arthrogram of the right knee. 4. CT arthrography is pending.
--- NOTE | 2016-12-08 17:01 | DIAGNOSTIC IMAGING REPORT ---
PROCEDURE: CT LOWER EXT W/CONTRAST-RIGHT (CT arthrogram). CLINICAL INDICATION: Right knee pain. Prior aneurysm surgery 1989 (may preclude MRI). TECHNIQUE: Intra-articular contrast injected earlier today. Thin cut axial images with sagittal and coronal re-formations. COMPARISON: Comparison is made to arthrogram earlier in the day (12/08/2016) and radiographs of the right knee (09/10/2016). FINDINGS: There is mild chondromalacia of the medial compartment with a 10 mm subchondral cyst of the posterior femoral condyle (nonweightbearing surface). There is attenuation of the mid medial meniscus, but no evidence of tear. There is mild chondromalacia of the lateral compartment. Lateral meniscus and lateral collateral ligament normal. Cruciate ligaments appear normal. There is mild chondromalacia the medial patella facet. Quadriceps and patellar tendons appear normal There is a moderate posterior medial popliteal cyst (6 cm x 2.5 cm). IMPRESSION: 1. There is mild chondromalacia and degenerative changes of all three compartments. 2. There is attenuation of the medial meniscus, but no evidence of meniscal tear. 3. There is a moderate popliteal cyst (6 cm x 2.5 cm) which could be reflection of prior or occult loose body. All CT scans at this facility use dose modulation, iterative reconstruction, and/or weight-based dosing when appropriate to reduce radiation dose to as low as reasonably achievable.
== END 2016-12-08 23:00 ==
LOC: XR SRH 10:00
PROC: BQ0 Imaging, Non-Axial Lower Bones, Plain Radiography (ICD-10-PCS; principal; 2016-12-08)
DX: M94.261 Chondromalacia, right knee (principal); M71.21 Synovial cyst of popliteal space [Baker], right knee

== ENCOUNTER 2017-02-15 10:57 | Emergency (ER) | payer OTHER ==
--- NOTE | 2017-02-15 12:11 | ED ORDER SUMMARY ---
..... Patient: NATE GONZALEZ OrderSheet [facility] VisitID: [id number] [address] [place] [address] 66y, F Registration Date/Time: 02/15/2017 ORDER SHEET Weight: 62.1 kg (stated) Allergies: Demerol GENERAL ORDERS: Ribs Unilat w PA Chest Left Urgent (11:02/15/2017 Ashley Granado) (Ack 11:29 PWeiler ER Tech1) (11:32 SRoberts R.N.) MEDICATION ORDERS: Toradol IM 60 mg (NOW) (11:02/15/2017 Ashley Granado) (Ack 11:23 SRoberts R.N.) (11:32 SRoberts R.N.) Hydrocodone-APAP PO 5/325 mg (NOW, HIGH ALERT MEDICATION) (:02/15/2017 Ashley Granado) (Ack 11:23 SRoberts R.N.) (11:32 SRoberts R.N.) IV FLUIDS: ORDER SHEET NOTES: [Electronically signed by Maddie Harvey R.N. (13:17 02/15/2017)] [Electronically signed by Rene Pena Dr. (07:09 02/17/2017)] [Electronically locked/signed by Maddie Harvey R.N. (13:17 02/15/2017)]
--- NOTE | 2017-02-15 12:11 | ED CLINICAL REPORT ---
Clinical Report - Physicians/Mid Levels [facility] [address] [place] [address] 02/15/2017 10:57 Patient: NATE GONZALEZ Time Seen: 1117; initial patient contact. Arrived- By private vehicle. Historian- patient. HISTORY OF PRESENT ILLNESS Chief Complaint: Injury to CHEST. Location of injuries- (left anterior chest). The injury occurred today. Fell. Occurred at home. The patient complains of moderate pain. No blow to the head, neck pain, loss of consciousness or seizure. Not dazed. REVIEW OF SYSTEMS No numbness, weakness, difficulty breathing or laceration. All systems otherwise negative, except as recorded above. PAST HISTORY See nurses notes. Tetanus immunization status is up-to-date. Medications: Dilaudid Oral (Tablet 2 mg) 1 tablet, PRN. AmLODIPine Besylate Oral 2.5 mg, 2x a day. Aspirin Oral (Tablet 81 mg) 1 tablet, q day. ClonazePAM Oral 1 mg, 4x a day. Imitrex Oral (Tablet 100 mg) 1 tablet, PRN. Lopressor Oral (Tablet 100 mg) 1-1/2 tablets, 2x a day. Percocet Oral 5/325 mg (at night). Vicodin Oral 7.5 mg, 4x a day (during the day). Allergies: Demerol. SOCIAL HISTORY Smoker- current status unknown. No alcohol use or drug use. Is a local resident. ADDITIONAL NOTES The nursing notes have been reviewed. PHYSICAL EXAM Vital Signs: 02/15/2017 11:13 BP: 137/85. HR: 87. RR: 20. O2 saturation: 92%. Temp: 98.2 F. Pain level now: 10/10. Oxygen saturation not normal. Appearance: Alert. Oriented X3. No acute distress. Head: Head non-tender. No swelling of head. No Mcdonald's sign or raccoon eyes. Eyes: Pupils equal, round and reactive to light. Pupillary exam: Right pupil 3mm, round and reactive to light directly and consensually and with accommodation. Left pupil: 3mm, round and reactive to light directly and consensually and with accommodation. EOM intact. ENT: No dental injury. No hemotympanum. Pharynx normal. Neck: No decreased ROM or muscle spasm in the neck. No pain with movement of head/neck. Painless ROM. Non-tender. No vertebral tenderness. CVS: Heart sounds normal. Pulses normal. Respiratory: Chest wall injury: moderate tenderness. (left lateral.). Breath sounds normal. Chest nontender. No rales, wheezes or rhonchi. (no overlying skin changes. No crepitus. No bony abnormalities. Skin is intact.). Abdomen: No visible injury. Soft and nontender. Bowel sounds normal. Back: No tenderness. ROM normal. No vertebral point tenderness. Skin: Skin intact. Skin warm and dry. Normal skin color. Normal skin turgor. Extremities: Normal inspection. Pelvis stable. Extremities atraumatic. No lower extremity edema. Neuro: Oriented X 3. No motor deficit. No sensory deficit. LABS, X-RAYS, AND EKG Sternum / Ribs X-rays: (PROCEDURE: XR RIBS UNILAT W/PA CHEST-LT INDICATION: TRAUMA/INJURY TECHNIQUE: Two views of the left ribs with single PA view chest. COMPARISON: Chest x-ray 08/24/2013. FINDINGS: LEFT RIBS: Nondisplaced left ninth and tenth rib fractures, acute versus subacute. CHEST: Minor bibasilar atelectasis. No pneumothorax. Heart size, mediastinum and pulmonary vessels are normal. Left upper quadrant surgical clips. IMPRESSION: 1. Nondisplaced left ninth and tenth rib fractures, acute versus subacute). The X-rays were independently viewed by me and interpreted by the radiologist. The X-rays were discussed with the radiologist (via pacs). PROGRESS AND PROCEDURES Course of Care: the patient is a 66-year-old female presenting for evaluation of traumatic injury to the left lateral chest. At this time differential diagnosis includes rib fracturesand possiblepneumothorax. Patient is agreeable to the treatment and plan. The patient's workup was remarkable for the findings above. No signs of pneumothorax. Patient with rib fractures. Discussed with the patient and family did workup here in the emergency department including diagnosis, home care, follow-up, and return precautions. All questions have been answered. The patient expressed understanding of these Instructions and was agreeable to them. patient's repeat examination is benign. Lungs are equal bilaterally. Patient in no acute dist. Disposition: Discharged. Condition: good. CLINICAL IMPRESSION 02/15/2017 11:13 BP: 137/85. HR: 87. RR: 20. O2 saturation: 92%. Temp: 98.2 F. Pain level now: 10/10. Blood pressure normal. Oxygen saturation: borderline. Single left rib fracture (acute). INSTRUCTIONS Warnings: SEDATIVE MEDICATION: You were given sedative medication during your visit. Do not drive or operate dangerous machinery. CONTROLLED SUBSTANCE WARNINGS. GENERAL WARNINGS: Return or contact your physician immediately if your condition worsens or changes unexpectedly, if not improving as expected, or if other problems arise. SPECIFICALLY, return if you develop weakness, numbness, tingling, pain or incontinence. Your Current Medications: CONTINUE TAKING THE FOLLOWING MEDICATIONS: AmLODIPine Besylate Oral : 2.5 mg 2x a day. Aspirin Oral : Tablet 81 mg, 1 tablet q day. ClonazePAM Oral : 1 mg 4x a day. Dilaudid Oral : Tablet 2 mg, 1 tablet PRN. Imitrex Oral : Tablet 100 mg, 1 tablet PRN. Lopressor Oral : Tablet 100 mg, 1-1/2 tablets 2x a day. Percocet Oral : 5/325 mg, at night. Vicodin Oral : 7.5 mg 4x a day, during the day. Prescription Medications: Percocet 5 mg/325 mg: take 1 tablet orally every 6 hours as needed for pain. Dispense twenty (20). No refill. Substitution is permissible. OTC Medications: Motrin (available over the counter): take according to label instructions. Follow-up: Return to the emergency department as needed. Follow up with your doctor in three days. Reason for referral: recheck today's concerns. Summary of care provided to patient via paper. Screening today revealed the patient's blood pressure to be in the normal range. The patient should follow up with a primary care provider for blood pressure management. Understanding of the discharge instructions verbalized by patient. (Electronically signed by Rene Pena Dr. 02/17/2017 7:09)
--- NOTE | 2017-02-15 12:11 | ED NURSING NOTES ---
Clinical Report - Nurses [facility] [address] [place] [address] 02/15/2017 10:57 [id number] Triage time 11:13. Acuity: LEVEL 3. Chief Complaint: FALL 1-2 FEET while walking, onto a wood surface (Fell against a table and hit on the lt rib area. Pain at 10/10). Alert. No acute distress. SEPSIS SCREEN: Sepsis Screen: negative. Negative (no infection suspected/documented). TIANA COMA SCORE: [place] Coma Scale: 15- eyes open spontaneously (4); best verbal response- oriented x 4 (5); best motor response- obeys commands (6). --11:21 Maddie Harvey R.N. 11:13 02/15/17. BP: 137/85. HR: 87. RR: 20. O2 saturation: 92% on room air. Temp: 98.2 F. Pain level now: 05/24. --11:21 Maddie Harvey R.N. 11:13 02/15/17. BP: 137/85. HR: 87. RR: 20. O2 saturation: 92% on room air. Temp: 98.2 F. Pain level now: 05/24. --11:22 Maddie Harvey R.N. Weight: 62.1 kg stated. Height/Length: 62 inches Per Patient. BMI: 25.1. --11:19 Maddie Harvey R.N. Medications AmLODIPine Besylate Oral 2.5 mg, 2x a day. Aspirin Oral (Tablet 81 mg) 1 tablet, q day. ClonazePAM Oral 1 mg, 4x a day. Imitrex Oral (Tablet 100 mg) 1 tablet, PRN. Lopressor Oral (Tablet 100 mg) 1-1/2 tablets, 2x a day. Percocet Oral 5/325 mg (at night). Vicodin Oral 7.5 mg, 4x a day (during the day). --11:16 Maddie Harvey R.N. Dilaudid Oral (Tablet 2 mg) 1 tablet, PRN. --11:16 Maddie Harvey R.N. Medication/allergy information source: the patient. --11:21 Maddie Harvey R.N. Allergies Demerol. --11:16 Maddie Harvey R.N. History Arrived by private vehicle. Historian: patient. Primary physician (kirti). ( dropped off). This occurred (3). Occurred at home. Limited ROM present. Treatment DIGITAL COORDINATOR: (vicodin at 0730). Trauma activation: Pre-hospital notification of patient arrival was not received. PAST MEDICAL HX: Tetanus status: unknown. The patient has had a hysterectomy. SOCIAL HX: Light tobacco smoker (cigarette)- less than 1/2 a pack per day. No alcohol use or drug use. FALL RISK ASSESSMENT: Fall risk assessment completed. No fall risk identified. NUTRITIONAL RISK ASSESSMENT: The nutritional risk assessment revealed no deficiencies. FUNCTIONAL ASSESSMENT: Functional assessment: no impairments noted. LEARNING NEEDS ASSESSMENT: The learning needs assessment revealed no barriers. SKIN INTEGRITY ASSESSMENT: Skin integrity risk assessment completed. No skin integrity risk identified. --11:21 Maddie Harvey R.N. PROBLEMS: Fall, lt rib pain . Acute Pain. Knee Injury. Nausea. Vomiting. Gallstone(s). Gastroenteritis. Abnormal Liver Function Test. Abdominal Pain. Immunizations. UTI - Urinary Tract Infection. Leukocytosis. Dehydration. Aneurysm, Cerebral. Anxiety Reaction. Depression. Bowel Obstruction. Headache. LNMP - Last Normal Menstrual Period. Crohn's Disease. Migraine Headache. Hypertension. --11:17 Maddie Harvey R.N. Aneurysm [Resolved]. --11:17 Maddie Harvey R.N. Vomiting [RuleOut]. --11:17 Maddie Harvey R.N. ADDITIONAL SURGERIES: Appendectomy. Bowel Surgery. Breast Biopsy. Cholecystectomy. Colostomy. Colostomy reversal. Corotid artery doppler study. EEG. Hysterectomy. Oophorectomy. Previous Abdominal Surgery. Salpingectomy. Tonsillectomy. --11:18 Maddie Harvey R.N. Interventions ID band on patient. To room. --11:21 Maddie Harvey R.N. PHYSICAL ASSESSMENT To room via wheelchair. Patient gowned. HEENT: Head non-tender. RESPIRATORY: Respirations not labored. CVS: Left breast area : tenderness. Capillary refill less than 2 seconds. GI / : Abdomen nontender. EXTREMITIES: Limited ROM present. Neuro-vascular status intact to the extremity. --11:22 Maddie Harvey R.N. NURSING PROGRESS NOTES Extremity elevated. Two patient identifiers checked. Call light placed in reach. Side rails up x 2. Bed placed in lowest position. Brakes of bed on. Patient ready for evaluation. --11:22 Maddie Harvey R.N. 11:27 02/15/2017 Hydrocodone-APAP (Hydrocodone-Acetaminophen) PO 5/325 mg Tablets 1 tab given. Allergies verified, confirmed 5 rights and sedative warning given to the patient. --11:32 Maddie Harvey R.N. 11:32 02/15/2017 Toradol (Ketorolac Tromethamine) IM 60 mg given. Given in the left gluteus nadja. Allergies verified and confirmed 5 rights. --11:32 Maddie Harvey R.N. DISPOSITION / DISCHARGE Condition at departure: improved. No learning barriers present. Reviewed medication(s) side effects, precautions, dosing and course information. Prescription(s) given to the patient. Patient verbalized understanding. Written instructions provided in Occitan. The patient was discharged home and accompanied by harbormaster. She left the Emergency Department ambulatory and via private vehicle. Lunchroom Mother driving. Medication list reviewed and validated. --13:17 Maddie Harvey R.N. 12:20 02/15/17. BP: 117/59. HR: 81. RR: 18. O2 saturation: 94%. Temp: deferred. Pain level now: 01/22. 11:13 02/15/17. BP: 137/85. HR: 87. RR: 20. O2 saturation: 92% on room air. Temp: 98.2 F. Pain level now: 05/24. --13:17 Maddie Harvey R.N. Locked/Released at 02/15/2017 13:17 by Maddie Harvey R.N.
--- NOTE | 2017-02-15 12:11 | ED ORDER SUMMARY ---
..... Patient: NATE GONZALEZ OrderSheet [facility] VisitID: [id number] [address] [place] [address] 66y, F Registration Date/Time: 02/15/2017 ORDER SHEET Weight: 62.1 kg (stated) Allergies: Demerol GENERAL ORDERS: Ribs Unilat w PA Chest Left Urgent (11:02/15/2017 Ashley Granado) (Ack 11:29 PWeiler ER Tech1) (11:32 SRoberts R.N.) MEDICATION ORDERS: Toradol IM 60 mg (NOW) (11:02/15/2017 Ashley Granado) (Ack 11:23 SRoberts R.N.) (11:32 SRoberts R.N.) Hydrocodone-APAP PO 5/325 mg (NOW, HIGH ALERT MEDICATION) (:02/15/2017 Ashley Granado) (Ack 11:23 SRoberts R.N.) (11:32 SRoberts R.N.) IV FLUIDS: ORDER SHEET NOTES: [Electronically signed by Maddie Harvey R.N. (13:17 02/15/2017)] [Electronically signed by Rene Pena Dr. (07:09 02/17/2017)] [Electronically locked/signed by Maddie Harvey R.N. (13:17 02/15/2017)]
--- NOTE | 2017-02-15 12:11 | ED NURSING NOTES ---
Clinical Report - Nurses [facility] [address] [place] [address] 02/15/2017 10:57 [id number] Triage time 11:13. Acuity: LEVEL 3. Chief Complaint: FALL 1-2 FEET while walking, onto a wood surface (Fell against a table and hit on the lt rib area. Pain at 10/10). Alert. No acute distress. SEPSIS SCREEN: Sepsis Screen: negative. Negative (no infection suspected/documented). TIANA COMA SCORE: [place] Coma Scale: 15- eyes open spontaneously (4); best verbal response- oriented x 4 (5); best motor response- obeys commands (6). --11:21 Maddie Harvey R.N. 11:13 02/15/17. BP: 137/85. HR: 87. RR: 20. O2 saturation: 92% on room air. Temp: 98.2 F. Pain level now: 05/24. --11:21 Maddie Harvey R.N. 11:13 02/15/17. BP: 137/85. HR: 87. RR: 20. O2 saturation: 92% on room air. Temp: 98.2 F. Pain level now: 05/24. --11:22 Maddie Harvey R.N. Weight: 62.1 kg stated. Height/Length: 62 inches Per Patient. BMI: 25.1. --11:19 Maddie Harvey R.N. Medications AmLODIPine Besylate Oral 2.5 mg, 2x a day. Aspirin Oral (Tablet 81 mg) 1 tablet, q day. ClonazePAM Oral 1 mg, 4x a day. Imitrex Oral (Tablet 100 mg) 1 tablet, PRN. Lopressor Oral (Tablet 100 mg) 1-1/2 tablets, 2x a day. Percocet Oral 5/325 mg (at night). Vicodin Oral 7.5 mg, 4x a day (during the day). --11:16 Maddie Harvey R.N. Dilaudid Oral (Tablet 2 mg) 1 tablet, PRN. --11:16 Maddie Harvey R.N. Medication/allergy information source: the patient. --11:21 Maddie Harvey R.N. Allergies Demerol. --11:16 Maddie Harvey R.N. History Arrived by private vehicle. Historian: patient. Primary physician (kirti). ( dropped off). This occurred (3). Occurred at home. Limited ROM present. Treatment SKY LINE YARDER: (vicodin at 0730). Trauma activation: Pre-hospital notification of patient arrival was not received. PAST MEDICAL HX: Tetanus status: unknown. The patient has had a hysterectomy. SOCIAL HX: Light tobacco smoker (cigarette)- less than 1/2 a pack per day. No alcohol use or drug use. FALL RISK ASSESSMENT: Fall risk assessment completed. No fall risk identified. NUTRITIONAL RISK ASSESSMENT: The nutritional risk assessment revealed no deficiencies. FUNCTIONAL ASSESSMENT: Functional assessment: no impairments noted. LEARNING NEEDS ASSESSMENT: The learning needs assessment revealed no barriers. SKIN INTEGRITY ASSESSMENT: Skin integrity risk assessment completed. No skin integrity risk identified. --11:21 Maddie Harvey R.N. PROBLEMS: Fall, lt rib pain . Acute Pain. Knee Injury. Nausea. Vomiting. Gallstone(s). Gastroenteritis. Abnormal Liver Function Test. Abdominal Pain. Immunizations. UTI - Urinary Tract Infection. Leukocytosis. Dehydration. Aneurysm, Cerebral. Anxiety Reaction. Depression. Bowel Obstruction. Headache. LNMP - Last Normal Menstrual Period. Crohn's Disease. Migraine Headache. Hypertension. --11:17 Maddie Harvey R.N. Aneurysm [Resolved]. --11:17 Maddie Harvey R.N. Vomiting [RuleOut]. --11:17 Maddie Harvey R.N. ADDITIONAL SURGERIES: Appendectomy. Bowel Surgery. Breast Biopsy. Cholecystectomy. Colostomy. Colostomy reversal. Corotid artery doppler study. EEG. Hysterectomy. Oophorectomy. Previous Abdominal Surgery. Salpingectomy. Tonsillectomy. --11:18 Maddie Harvey R.N. Interventions ID band on patient. To room. --11:21 Maddie Harvey R.N. PHYSICAL ASSESSMENT To room via wheelchair. Patient gowned. HEENT: Head non-tender. RESPIRATORY: Respirations not labored. CVS: Left breast area : tenderness. Capillary refill less than 2 seconds. GI / : Abdomen nontender. EXTREMITIES: Limited ROM present. Neuro-vascular status intact to the extremity. --11:22 Maddie Harvey R.N. NURSING PROGRESS NOTES Extremity elevated. Two patient identifiers checked. Call light placed in reach. Side rails up x 2. Bed placed in lowest position. Brakes of bed on. Patient ready for evaluation. --11:22 Maddie Harvey R.N. 11:27 02/15/2017 Hydrocodone-APAP (Hydrocodone-Acetaminophen) PO 5/325 mg Tablets 1 tab given. Allergies verified, confirmed 5 rights and sedative warning given to the patient. --11:32 Maddie Harvey R.N. 11:32 02/15/2017 Toradol (Ketorolac Tromethamine) IM 60 mg given. Given in the left gluteus nadja. Allergies verified and confirmed 5 rights. --11:32 Maddie Harvey R.N. DISPOSITION / DISCHARGE Condition at departure: improved. No learning barriers present. Reviewed medication(s) side effects, precautions, dosing and course information. Prescription(s) given to the patient. Patient verbalized understanding. Written instructions provided in Serbian. The patient was discharged home and accompanied by surveillance systems analyst. She left the Emergency Department ambulatory and via private vehicle. Cook Jelly driving. Medication list reviewed and validated. --13:17 Maddie Harvey R.N. 12:20 02/15/17. BP: 117/59. HR: 81. RR: 18. O2 saturation: 94%. Temp: deferred. Pain level now: 01/22. 11:13 02/15/17. BP: 137/85. HR: 87. RR: 20. O2 saturation: 92% on room air. Temp: 98.2 F. Pain level now: 05/24. --13:17 Maddie Harvey R.N. Locked/Released at 02/15/2017 13:17 by Maddie Harvey R.N.
--- NOTE | 2017-02-17 07:09 | ED MAR SUMMARY ---
..... Medication Administration Record [facility] [address] [place] [address] Patient: NATE GONZALEZ Visit ID: [id number] 66y, F Weight: 62.1 kg Height/Length: 62 in BMI: 25.1 ALLERGIES: Demerol Given 11:27 02/15/2017 Maddie Harvey R.N. Medication Administered: HYDROCODONE-APAP [PO] (HYDROCODONE-ACETAMINOPHEN), Dose: 1 tab 5/325 mg Tablets PO. Medication Ordered: Hydrocodone-APAP PO 5/325 mg (NOW, HIGH ALERT MEDICATION). Given 11:32 02/15/2017 Maddie Harvey R.N. Medication Administered: TORADOL [IM] (KETOROLAC TROMETHAMINE), Dose: 60 mg IM. Medication Ordered: Toradol IM 60 mg (NOW).
--- NOTE | 2017-02-17 07:09 | ED MED RECONCILIATION SUMMARY ---
Patient: NATE GONZALEZ Medication Reconciliation Report [facility] VisitID: [id number] [address] [place] [address] 66y, F Registration Date/Time: 02/15/2017 Weight: 62.1 kg Height/Length: 62 in. BMI: 25.1 ALLERGIES: Demerol The patient's Home Medications are listed below: CONTINUE TAKING THE FOLLOWING MEDICATIONS: AmLODIPine Besylate Oral 2.5 mg, 2x a day Aspirin Oral (81 mg) 1 tablet, q day ClonazePAM Oral 1 mg, 4x a day Dilaudid Oral (2 mg) 1 tablet, PRN Imitrex Oral (100 mg) 1 tablet, PRN Lopressor Oral (100 mg) 1-1/2 tablets, 2x a day Percocet Oral 5/325 mg, at night Vicodin Oral 7.5 mg, 4x a day, during the day The source(s) of the original Home Medication information: patient The following Medications were given to the patient in the Emergency Department: Toradol [IM] IM 60 mg, administered: 02/15/2017 11:32:00 AM Hydrocodone-APAP [PO] PO 1 tab, administered: 02/15/2017 11:27:00 AM The following Medications were prescribed to the patient: Motrin (available over the counter): take according to label instructions. -- Rene Pena Dr. Percocet 5 mg/325 mg: take 1 tablet orally every 6 hours as needed for pain. Dispense twenty (20). No refill. Substitution is permissible. -- Rene Pena Dr.
--- NOTE | 2017-02-17 07:09 | ED DISCHARGE INSTRUCTIONS ---
Patient: NATE GONZALEZ General Instructions [facility] VisitID: [id number] [place] [address] 66y, F Registration Date/Time: 02/15/2017 02/15/2017 11:13 BP: 137/85. HR: 87. RR: 20. O2 saturation: 92%. Temp: 98.2 F. Pain level now: 1010. Blood pressure normal. Oxygen saturation: borderline. Single left rib fracture (acute). INSTRUCTIONS Warnings: SEDATIVE MEDICATION: You were given sedative medication during your visit. Do not drive or operate dangerous machinery. CONTROLLED SUBSTANCE WARNINGS. GENERAL WARNINGS: Return or contact your physician immediately if your condition worsens or changes unexpectedly, if not improving as expected, or if other problems arise. SPECIFICALLY, return if you develop weakness, numbness, tingling, pain or incontinence. Your Current Medications: CONTINUE TAKING THE FOLLOWING MEDICATIONS: AmLODIPine Besylate Oral : 2.5 mg 2x a day. Aspirin Oral : Tablet 81 mg, 1 tablet q day. ClonazePAM Oral : 1 mg 4x a day. Dilaudid Oral : Tablet 2 mg, 1 tablet PRN. Imitrex Oral : Tablet 100 mg, 1 tablet PRN. Lopressor Oral : Tablet 100 mg, 1-1/2 tablets 2x a day. Percocet Oral : 5/325 mg, at night. Vicodin Oral : 7.5 mg 4x a day, during the day. Prescription Medications: Percocet 5 mg/325 mg: take 1 tablet orally every 6 hours as needed for pain. Dispense twenty (20). No refill. Substitution is permissible. OTC Medications: Motrin (available over the counter): take according to label instructions. Follow-up: Return to the emergency department as needed. Follow up with your doctor in three days. Reason for referral: recheck today's concerns. Summary of care provided to patient via paper. Screening today revealed the patient's blood pressure to be in the normal range. The patient should follow up with a primary care provider for blood pressure management. Understanding of the discharge instructions verbalized by patient. ADDITIONAL INFORMATION Rib Fracture You have a fracture (break) of one or more ribs. Rib fractures do not require a cast like other bones. They will heal by themselves in about 4-6 weeks. The first 3-4 weeks will be the most painful because deep breathing, coughing or changing position from sitting to lying down, may cause the broken ends to move slightly. Home Care: Rest. You should not be doing any heavy lifting or strenuous exertion until the pain goes away. Because it hurts to breathe when you have a broken rib, there is risk of getting pneumonia from poor airflow through your lungs. To prevent this: Take four very deep breaths at least four times a day (exhale through pursed lips as if you are blowing up a balloon). If an "incentive spirometer" (breathing exercise device) was given to you, use it at least four times a day, or as directed. Apply an ice pack (ice cubes in a plastic bag, wrapped in a towel) over the injured area for 20 minutes every 1-2 hours the first day. Continue with ice packs 3-4 times a day for the next two days, then as needed for the relief of pain and swelling. You may use acetaminophen (Tylenol) or ibuprofen (Motrin, Advil) to control pain, unless another pain medicine was prescribed. [NOTE: If you have chronic liver or kidney disease or ever had a stomach ulcer or GI bleeding, talk with your doctor before using these medicines.] If your pain is not controlled by the treatment given, contact your doctor. Sometimes a stronger pain medicine may be needed. A nerve block (numbing the nerve between the ribs) can be performed in case of severe pain. Follow Up with your doctor during the next week, or as advised. Rarely, a broken rib will cause complications within the first few days that may not be evident during your initial exam (such as, collapsed lung, bleeding around the lung or into the abdomen, or pneumonia). Therefore, watch for the signs below. [NOTE: If x-rays were taken, they will be reviewed by a radiologist. You will be notified of any new findings that may affect your care.] Get Prompt Medical Attention if any of the following occur: Shortness of breath Increasing chest pain with breathing Dizziness, weakness or fainting New or worsening abdominal pain Fever of 100.4F (38C) or higher, or as directed by your healthcare provider Congested cough Oxycodone Hydrochloride, Acetaminophen Oral tablet What is this medicine? ACETAMINOPHEN; OXYCODONE (a set a FARHAD yola fen; ox i KOE done) is a pain reliever. It is used to treat mild to moderate pain. How should I use this medicine? Take this medicine by mouth with a full glass of water. Follow the directions on the prescription label. Take your medicine at regular intervals. Do not take your medicine more often than directed. Talk to your supervisor powdered sugar regarding the use of this medicine in children. Special care may be needed. Patients over 65 years old may have a stronger reaction and need a smaller dose. What side effects may I notice from receiving this medicine? Side effects that you should report to your doctor or health director of home care hospice as soon as possible: allergic reactions like skin rash, itching or hives, swelling of the face, lips, or tongue breathing difficulties, wheezing confusion light headedness or fainting spells severe stomach pain yellowing of the skin or the whites of the eyes Side effects that usually do not require medical attention (report to your doctor or health director of home care hospice if they continue or are bothersome): dizziness drowsiness nausea vomiting What may interact with this medicine? alcohol antihistamines barbiturates like amobarbital, butalbital, butabarbital, methohexital, pentobarbital, phenobarbital, thiopental, and secobarbital benztropine drugs for bladder problems like solifenacin, trospium, oxybutynin, tolterodine, hyoscyamine, and methscopolamine drugs for breathing problems like ipratropium and tiotropium drugs for certain stomach or intestine problems like propantheline, homatropine methylbromide, glycopyrrolate, atropine, belladonna, and dicyclomine general anesthetics like etomidate, ketamine, nitrous oxide, propofol, desflurane, enflurane, halothane, isoflurane, and sevoflurane medicines for depression, anxiety, or psychotic disturbances medicines for sleep muscle relaxants naltrexone narcotic medicines (opiates) for pain phenothiazines like perphenazine, thioridazine, chlorpromazine, mesoridazine, fluphenazine, prochlorperazine, promazine, and trifluoperazine scopolamine tramadol trihexyphenidyl What if I miss a dose? If you miss a dose, take it as soon as you can. If it is almost time for your next dose, take only that dose. Do not take double or extra doses. Where should I keep my medicine? Keep out of the reach of children. This medicine can be abused. Keep your medicine in a safe place to protect it from theft. Do not share this medicine with anyone. Selling or giving away this medicine is dangerous and against the law. Store at room temperature between 20 and 25 degrees C (68 and 77 degrees F). Keep container tightly closed. Protect from light. This medicine may cause accidental overdose and if it is taken by other adults, children, or pets. Flush any unused medicine down the toilet to reduce the chance of harm. Do not use the medicine after the expiration date. What should I tell my health care provider before I take this medicine? They need to know if you have any of these conditions: brain tumor Crohn's disease, inflammatory bowel disease, or ulcerative colitis drink more than 3 alcohol containing drinks per day drug abuse or addiction head injury heart or circulation problems kidney disease or problems going to the bathroom liver disease lung disease, asthma, or breathing problems an unusual or allergic reaction to acetaminophen, oxycodone, other opioid analgesics, other medicines, foods, dyes, or preservatives or trying to get breast-feeding What should I watch for while using this medicine? Tell your doctor or health director of home care hospice if your pain does not go away, if it gets worse, or if you have new or a different type of pain. You may develop tolerance to the medicine. Tolerance means that you will need a higher dose of the medication for pain relief. Tolerance is normal and is expected if you take this medicine for a long time. Do not suddenly stop taking your medicine because you may develop a severe reaction. Your body becomes used to the medicine. This does NOT mean you are addicted. Addiction is a behavior related to getting and using a drug for a non-medical reason. If you have pain, you have a medical reason to take pain medicine. Your doctor will tell you how much medicine to take. If your doctor wants you to stop the medicine, the dose will be slowly lowered over time to avoid any side effects. You may get drowsy or dizzy. Do not drive, use machinery, or do anything that needs mental alertness until you know how this medicine affects you. Do not stand or sit up quickly, especially if you are an older patient. This reduces the risk of dizzy or fainting spells. Alcohol may interfere with the effect of this medicine. Avoid alcoholic drinks. There are different types of narcotic medicines (opiates) for pain. If you take more than one type at the same time, you may have more side effects. Give your health care provider a list of all medicines you use. Your doctor will tell you how much medicine to take. Do not take more medicine than directed. Call emergency for help if you have problems breathing. The medicine will cause constipation. Try to have a bowel movement at least every 2 to 3 days. If you do not have a bowel movement for 3 days, call your doctor or health director of home care hospice. Do not take Tylenol (acetaminophen) or medicines that have acetaminophen with this medicine. Too much acetaminophen can be very dangerous. Many nonprescription medicines contain acetaminophen. Always read the labels carefully to avoid taking more acetaminophen. You have been given the following additional information: Fracture, Rib Oxycodone Hydrochloride, Acetaminophen Oral tablet (Electronically signed by Rene Pena Dr. 02/17/2017 7:09)
--- NOTE | 2017-02-17 07:09 | ED MED RECONCILIATION SUMMARY ---
Patient: NATE GONZALEZ Medication Reconciliation Report [facility] VisitID: [id number] [address] [place] [address] 66y, F Registration Date/Time: 02/15/2017 Weight: 62.1 kg Height/Length: 62 in. BMI: 25.1 ALLERGIES: Demerol The patient's Home Medications are listed below: CONTINUE TAKING THE FOLLOWING MEDICATIONS: AmLODIPine Besylate Oral 2.5 mg, 2x a day Aspirin Oral (81 mg) 1 tablet, q day ClonazePAM Oral 1 mg, 4x a day Dilaudid Oral (2 mg) 1 tablet, PRN Imitrex Oral (100 mg) 1 tablet, PRN Lopressor Oral (100 mg) 1-1/2 tablets, 2x a day Percocet Oral 5/325 mg, at night Vicodin Oral 7.5 mg, 4x a day, during the day The source(s) of the original Home Medication information: patient The following Medications were given to the patient in the Emergency Department: Toradol [IM] IM 60 mg, administered: 02/15/2017 11:32:00 AM Hydrocodone-APAP [PO] PO 1 tab, administered: 02/15/2017 11:27:00 AM The following Medications were prescribed to the patient: Motrin (available over the counter): take according to label instructions. -- Rene Pena Dr. Percocet 5 mg/325 mg: take 1 tablet orally every 6 hours as needed for pain. Dispense twenty (20). No refill. Substitution is permissible. -- Rene Pena Dr.
--- NOTE | 2017-02-17 07:09 | ED MAR SUMMARY ---
..... Medication Administration Record [facility] [address] [place] [address] Patient: NATE GONZALEZ Visit ID: [id number] 66y, F Weight: 62.1 kg Height/Length: 62 in BMI: 25.1 ALLERGIES: Demerol Given 11:27 02/15/2017 Maddie Harvey R.N. Medication Administered: HYDROCODONE-APAP [PO] (HYDROCODONE-ACETAMINOPHEN), Dose: 1 tab 5/325 mg Tablets PO. Medication Ordered: Hydrocodone-APAP PO 5/325 mg (NOW, HIGH ALERT MEDICATION). Given 11:32 02/15/2017 Maddie Harvey R.N. Medication Administered: TORADOL [IM] (KETOROLAC TROMETHAMINE), Dose: 60 mg IM. Medication Ordered: Toradol IM 60 mg (NOW).
== END 2017-02-15 12:20 | disposition home or self-care (01) ==
LOC: ED SRH 10:57
DX: S22.32XA Fracture of one rib, left side, initial encounter for closed fracture (principal); W17.89XA Other fall from one level to another, initial encounter; Y93.01 Activity, walking, marching and hiking; Y99.9 Unspecified external cause status; Y92.9 Unspecified place or not applicable; Z79.891 Long term (current) use of opiate analgesic; Z79.82 Long term (current) use of aspirin; Z79.899 Other long term (current) drug therapy; Z88.5 Allergy status to narcotic agent